=== PATIENT | female | born 1955 | race Caucasian/White ===

== ENCOUNTER → 2016-10-30 | Outpatient (CLI) | payer OTHER ==
[~2016-10-30] MED LIST: ACET-1256 PO; ASPI325T45 PO; CITA40TA4 PO; FERR325T18 PO; OXYC-57 PO; PRAV20TA PO; TRAZ50TA35 PO; ZOLP5TAB6 PO
[2016-10-30 12:55] LABS: ALT/SGPT 27 U/L (12-78); BLOOD UREA NITROGEN 12 mg/dl (7-18); BUN/CREATININE RATIO 16.2 (10-20); CARBON DIOXIDE 32 mmol/L (21-32); CHLORIDE 107 mmol/L (98-107); CREATININE 0.76 mg/dl (0.60-1.20); GLUCOSE 89 mg/dl (70-99); POTASSIUM 4.3 mmol/L (3.5-5.1); SODIUM 143 mmol/L (136-145)
[2016-10-30 12:58] LABS: CHOLESTEROL 192 mg/dl (0-200); CHOLESTEROL/HDL RATIO 2.7; HDL CHOLESTEROL 71 mg/dl; LDL CHOLESTEROL CALCULATED 107 mg/dl; TRIGLYCERIDES 71 mg/dl (0-150); VERY LOW DENSITY LIPOPROT CALC 14 mg/dl
== END | disposition home or self-care (01) ==
LOC: C.LAB1850 10:08
PROVIDERS: ATTEND Family Medicine
DX: E78.00 Pure hypercholesterolemia, unspecified (principal); R73.9 Hyperglycemia, unspecified

== ENCOUNTER 2017-09-22 16:15 | Emergency (ER) | payer OTHER ==
[~2017-09-22] VITALS: Ht 177.8 cm; Wt 80.0 kg
[2017-09-22 16:39] VITALS: TEMP 36.8; Ht 177.8 cm; Wt 80.0 kg
[2017-09-22] MEDS ORDERED: XYLOCAINE 1%/SOD BICARB 20 ML VIAL INFIL ONE (17:45)
[2017-09-22] MEDS ORDERED: CARB200T2 PO (18:00)
--- NOTE | 2017-09-22 18:18 | EMERGENCY ROOM VISIT NOTE ---
ED Visit Note First contact with patient: 17:35 CHIEF COMPLAINT: Left leg laceration HISTORY OF PRESENT ILLNESS: This 62-year-old female presents to ER with chief complaint of left lower leg laceration. The patient states that she was gardening and a stick from a garcia cut her anterior lower leg. The patient states there was minimal bleeding. She is not on any blood thinners. The patient's tetanus is up-to-date. REVIEW OF SYSTEMS: 6 system review was performed and was negative unless stated otherwise in history of present illness. PMH: The patient is healthy; there is no significant medical or surgical history. SOCIAL HISTORY: Patient living at home. Non-smoker, no alcohol or drug use. PHYSICAL EXAM: Vital Signs: Were reviewed reviewed Nurse's notes. General: 62- year-old white female appears in no acute distress. MENTAL Status: Alert and oriented 3. LEFT LOWER LEG: There is a 5 cm V-shaped laceration on the anterior aspect of the leg. The edges are gaping apart. There is no foreign material in the wound and it looks clean. There is no active bleeding. No deep structures such as tendons or nerves are seen in the base of the wound. EMERGENCY DEPARTMENT COURSE: The patient was evaluated. PROCEDURE: Wound Repair: Complexity: Basic. Verbal consent was obtained after the risks and benefits were explained, including but not limited to bleeding, scarring, infection, pain, and bone/joint /nerve damage. The skin was prepped with betadine and a sterile field set. The wound was anesthetized with 3.0 ml of 1% buffered lidocaine. With direct pressure the bleeding subsided. Copious irrigation was performed using sterile saline. The wound was explored for foreign bodies and none found. Debridement was not performed. The wound edges were approximated using 5-0 Ethilon with 8 simple interrupted sutures. Hemostasis and excellent approximation was achieved. Antibacterial ointment and a sterile dressing applied. Detailed wound care instructions and signs and symptoms of infection reviewed with the patient. No complications and the patient tolerated the procedure well. DIAGNOSIS: 5 cm left lower leg laceration DISCHARGE INSTRUCTIONS & TREATMENT: Keep wound clean and dry. No water on the area for 12-24 hrs then no soaking until sutures removed. Do not allow any crusting or dried blood to accumulate on sutures. If this occurs, use a 1:1 solution of hydrogen peroxide/water on a Q-tip to clean the wound. Use an antibiotic ointment for 3-4 days, then let wound dry. Suture removal in 8-10 days. Follow up sooner for any signs of infection (increasing redness, swelling , drainage). Ice and elevate for swelling and pain. Tylenol 650 mg every 6 hrs for pain. Current/Historical Medications Scheduled Citalopram (Citalopram Hydrobromide), 1 TAB PO QPM Pravastatin (Pravachol ), 1 TAB PO QPM Scheduled PRN Carbamazepine (Epitol), 100 MG PO UD PRN for FLARE UPS Trazodone Hcl (Trazodone), 50 MG PO HS PRN for RN Zolpidem Tartrate (Zolpidem Tartrate), 1 TAB PO HS PRN for RN Allergies Coded Allergies: No Known Allergies (Unverified , 09/22/17) Vital Signs Date Time Temp Pulse Resp B/P (MAP) Pulse Ox O2 Delivery O2 Flow Rate FiO2 09/22/17 16:39 36.8 81 16 142/75 96 Departure Information Referrals Anna Tate MD (PCP) Patient Instructions My [facility]
[2017-09-22 18:22] VITALS: BP 115/61; PULSE 71; O2SAT 95
== END 2017-09-22 18:24 | disposition home or self-care (01) ==
LOC: C.EDB 16:16 → C.EDD 18:24
DX: S81.812A Laceration without foreign body, left lower leg, initial encounter (principal); W26.8XXA Contact with other sharp object(s), not elsewhere classified, initial encounter

== ENCOUNTER 2017-09-30 17:19 | Emergency (ER) | payer OTHER ==
[~2017-09-30] VITALS: Ht 179.1 cm; Wt 77.1 kg
[~2017-09-30 17:19] MED LIST changes: -ACET-1256 PO; -ASPI325T45 PO; +CARB200T2 PO; -FERR325T18 PO; -OXYC-57 PO
[2017-09-30 17:23] VITALS: PULSE 67; TEMP 37; O2SAT 96; Ht 179.1 cm; Wt 77.1 kg
--- NOTE | 2017-09-30 20:32 | EMERGENCY ROOM VISIT NOTE ---
ED Visit Note First contact with patient: 17:25 CHIEF COMPLAINT: Suture removal This patient returns to the ED today for removal of sutures that were placed 8 days ago. There has been no swelling, redness, or drainage from the wound. The patient feels like the laceration is healing well. REVIEW OF SYSTEMS: Head: No headache, injury or neck pain. Skin: No rash, new lesions, or masses. General: No fever or chills, fatigue, loss of appetite , or significant recent weight gain or loss. PMH: Reviewed and unchanged from prior visit. SOCIAL HISTORY: Patient lives at home. PHYSICAL EXAM: Vital Signs: Reviewed Nurse's notes. There is a sutured wound on the anterior left mcnamara with no signs of infection. There is no erythema, swelling, or tenderness. EMERGENCY DEPARTMENT COURSE: The sutures were removed without any difficulty and there was no separation of the wound edges. Wound edges were reinforced with benzoin and Steri-Strips. Current/Historical Medications Scheduled Citalopram (Citalopram Hydrobromide), 40 MG PO QPM Pravastatin (Pravachol ), 20 MG PO QPM Scheduled PRN Carbamazepine (Epitol), 100 MG PO UD PRN for FLARE UPS Trazodone Hcl (Trazodone), 50 MG PO HS PRN for Insomnia Zolpidem Tartrate (Zolpidem Tartrate), 5 MG PO HS PRN for Insomnia Allergies Coded Allergies: No Known Allergies (Unverified , 09/30/17) Vital Signs Date Time Temp Pulse Resp B/P (MAP) Pulse Ox O2 Delivery O2 Flow Rate FiO2 09/30/17 17:23 37.0 67 18 96 Room Air Departure Information Impression Primary Impression: Encounter for removal of sutures Dispostion Home / Self-Care Condition GOOD Referrals Anna Tate MD (PCP) Forms HOME CARE DOCUMENTATION FORM, IMPORTANT VISIT INFORMATION Patient Instructions [facility]
== END 2017-09-30 18:00 | disposition home or self-care (01) ==
LOC: C.EDB 17:19 → C.EDD 18:00
DX: Z48.02 Encounter for removal of sutures (principal); S81.812D Laceration without foreign body, left lower leg, subsequent encounter; X58.XXXD Exposure to other specified factors, subsequent encounter

== ENCOUNTER 2022-11-22 00:31 | Observation (INO) ==
[2022-11-22] MEDS ORDERED: dilTIAZem HCl 5 MG/ML 5 ML VIAL IV STA (00:52)
--- NOTE | 2022-11-22 00:55 | Emergency Department Note ---
History of Present Illness General Chief complaint: Tachycardia Stated complaint: A-FIB,DON'T FEEL RIGHT,NAUSEA,SHAKY Time Seen by Provider: 11/22/22 00:44 History of Present Illness 67-year-old female presents emergency department states that she has been having intermittent palpitations over the past few days. Patient states that she drinks 4 cups of coffee daily and she is also been doing a lot of gardening. 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 Patient states that she had 1 episode similar to this 40 years ago while she was in college and it was attributed to potentially mitral valve prolapse. Patient denies any significant alcohol ingestion. Patient denies chest pain shortness of breath nausea vomiting. There are no other mitigating or alleviating factors Home Medications Medication Instructions Recorded Confirmed Type albuterol sulfate 90 mcg/actuation 1 puff inhalation .Q4-6HR PRN 09/05/22 11/22/22 History aerosol inhaler Shortness Of Breath Or Wheezing buspirone 5 mg tablet 5 mg PO DAILY 09/05/22 11/22/22 History citalopram 10 mg tablet 10 mg PO DAILY 09/05/22 11/22/22 History pravastatin 40 mg tablet 20 mg PO DAILY 09/05/22 11/22/22 History trazodone 50 mg tablet 25 mg PO HS 09/05/22 11/22/22 History carbamazepine 200 mg tablet 100 mg PO BID 11/22/22 11/22/22 History zolpidem 5 mg tablet 5 mg PO HS PRN Sleep 11/22/22 11/22/22 History Allergies Allergy/AdvReac Type Severity Reaction Status Date / Time No Known Allergies Allergy Verified 11/22/22 01:14 Past Med/Surg History Medical History No pertinent past medical history Surgical History History of hip replacement Social History Smoking Status: Never smoker Preferred Language: Yoruba Feels Safe at Home: Yes Immunizations: PMH - Hx very remotely of one episode of afib Review of Systems A total of 10 systems reviewed and were otherwise negative Cardiovascular: + palpitations; no chest pain Physical Exam Vital Signs Vital Signs - 24 hr 11/22/22 00:34 11/22/22 00:45 11/22/22 01:18 Temperature 36.5 C Temperature Source Temporal Artery Scan Pulse Rate 132 H 147 H 99 H Pulse Rate from SpO2 Sensor Pulse Rhythm Regular Respiratory Rate 22 16 Blood Pressure 123/86 Blood Pressure Mean 98 Pulse Oximetry 97 96 Oxygen Delivery Method Room Air Room Air Sepsis Recent Fever Within 48 Hours No Sepsis New/Unexplained Change in Mental Status No Sepsis Action Taken by Nursing No Action Required 11/22/22 00:49 11/22/22 00:49 11/22/22 00:50 Temperature Temperature Source Pulse Rate 134 H 132 H Pulse Rate from SpO2 Sensor Pulse Rhythm Respiratory Rate 15 17 Blood Pressure 147/106 H Blood Pressure Mean 132 Pulse Oximetry Oxygen Delivery Method Sepsis Recent Fever Within 48 Hours Sepsis New/Unexplained Change in Mental Status Sepsis Action Taken by Nursing 11/22/22 01:00 11/22/22 01:08 11/22/22 01:08 Temperature Temperature Source Pulse Rate 123 H 83 Pulse Rate from SpO2 Sensor Pulse Rhythm Respiratory Rate 15 17 Blood Pressure 87/45 L Blood Pressure Mean 59 Pulse Oximetry Oxygen Delivery Method Sepsis Recent Fever Within 48 Hours Sepsis New/Unexplained Change in Mental Status Sepsis Action Taken by Nursing 11/22/22 01:10 11/22/22 01:12 11/22/22 01:12 Temperature Temperature Source Pulse Rate 68 72 Pulse Rate from SpO2 Sensor 72 80 Pulse Rhythm Respiratory Rate 16 15 Blood Pressure 74/42 L Blood Pressure Mean 49 Pulse Oximetry 96 96 Oxygen Delivery Method Room Air Room Air Sepsis Recent Fever Within 48 Hours Sepsis New/Unexplained Change in Mental Status Sepsis Action Taken by Nursing 11/22/22 01:17 11/22/22 01:17 11/22/22 01:20 Temperature Temperature Source Pulse Rate 85 96 H Pulse Rate from SpO2 Sensor 91 H 104 H Pulse Rhythm Respiratory Rate 22 18 Blood Pressure 122/86 Blood Pressure Mean 111 Pulse Oximetry 96 96 Oxygen Delivery Method Room Air Room Air Sepsis Recent Fever Within 48 Hours Sepsis New/Unexplained Change in Mental Status Sepsis Action Taken by Nursing 11/22/22 01:15 11/22/22 01:25 11/22/22 01:23 Temperature Temperature Source Pulse Rate 55 L 85 Pulse Rate from SpO2 Sensor Pulse Rhythm Respiratory Rate Blood Pressure 121/85 Blood Pressure Mean 100 Pulse Oximetry Oxygen Delivery Method Sepsis Recent Fever Within 48 Hours Sepsis New/Unexplained Change in Mental Status Sepsis Action Taken by Nursing 11/22/22 01:23 11/22/22 01:30 11/22/22 01:31 Temperature Temperature Source Pulse Rate 86 78 Pulse Rate from SpO2 Sensor 100 H 91 H Pulse Rhythm Respiratory Rate 15 15 Blood Pressure 100/75 Blood Pressure Mean 81 Pulse Oximetry 95 94 Oxygen Delivery Method Room Air Room Air Sepsis Recent Fever Within 48 Hours Sepsis New/Unexplained Change in Mental Status Sepsis Action Taken by Nursing 11/22/22 01:31 Temperature Temperature Source Pulse Rate 85 Pulse Rate from SpO2 Sensor 97 H Pulse Rhythm Respiratory Rate 16 Blood Pressure Blood Pressure Mean Pulse Oximetry 96 Oxygen Delivery Method Room Air Sepsis Recent Fever Within 48 Hours Sepsis New/Unexplained Change in Mental Status Sepsis Action Taken by Nursing GENERAL: Patient is awake alert in no acute distress patient is resting comfortably and showing no signs of anxiety EYES: The conjunctivae are clear. The pupils are round and reactive. EARS, NOSE, MOUTH AND THROAT: The nose is without any evidence of any deformity. Mucous membranes are moist. Tongue is midline. NECK: The neck is nontender and supple. RESPIRATORY: Normal respiratory effort is noted there is no evidence of wheezing rhonchi or rales CARDIOVASCULAR: Irregularly irregular, tachycardic noted there no murmurs rubs or gallops normal S1 normal S2. GASTROINTESTINAL: The abdomen is soft. Abdomen is nontender. BACK: Full range of motion MUSCULOSKELETAL/EXTREMITIES: There is no evidence of gross deformity full range of motion is noted in the hips and shoulders. SKIN: There is no obvious evidence of any rash. There are no petechiae, pallor or cyanosis noted. NEUROLOGIC: Patient is awake alert and oriented x3 strength is symmetric Course Reevaluation(s) Reevaluation #1: Patient was started on IV fluids, given IV Cardizem had an episode of vomiting after her heart rate decreased to less than 60 and she was hypotensive. After 1 dose of Cardizem she had the symptoms but felt improved after she was given IV fluids and Zofran. The case was discussed with the hospitalist for admission. She also complained of a rash after tick bite in the right leg and I added later on the patient Time: 02:24 Consultations Consultation #1: Case was discussed with the [facility] hospitalist for admission Time: 02:24 Administered Medications Sodium Chloride (Nss 1000ml) 1,000 mls @ 999 mls/hr IV .Q1H1M ONE Stop: 11/22/22 03:02 Last Infusion: 11/22/22 02:28 Dose: 0 mls/hr Documented By: Admin: 11/22/22 01:17 Dose: 999 mls/hr Documented By: Discontinued Medications Diltiazem HCl (Diltiazem Hcl 5 Mg/Ml 5 Ml Vial) 20 mg IV NOW STA Stop: 11/22/22 00:53 Last Admin: 11/22/22 01:01 Dose: 20 mg Documented By: Co-signed By: SIXTO Ondansetron HCl (Ondansetron Inj 2 Mg/Ml 2 Ml Vial) 4 mg IV NOW STA Stop: 11/22/22 01:16 Last Admin: 11/22/22 01:19 Dose: 4 mg Documented By: Critical Care Time Critical Care Time: Yes Total Critical Care Time: 35 I have personally spent greater than 35 minutes of critical care time in the direct management of this patient. This includes bedside care, interpretation of diagnostic studies, and testing, discussion with consultants, patient, and family members, and other required patient management activities. These minutes are in excess of all separately billable procedures. Medical Decision Making Medical Records Attestation: I reviewed the patient's medical records. Home Medications Current Medication List: was personally reviewed by me Laboratory Data Attestation: I reviewed the patient's lab results. Patient's lab results were unremarkable as interpreted by me 11/22/22 01:03 11/22/22 01:03 Lab Results 11/22/22 11/22/22 11/22/22 Range/Units 01:03 01:03 01:03 WBC 3.59 L (4.8-10.8) K/ul RBC 4.38 (4.20-5.40) M/uL Hgb 14.1 (12.0-16.0) g/dl Hct 41.2 (37.0-47.0) % MCV 94.1 (80.0-100.0) fL MCH 32.2 (25.0-34.0) pg MCHC 34.2 (32.0-36.0) g/dL RDW Std Deviation 43.1 (36.4-46.3) fL RDW Coeff of Ignacio 12.4 (11.5-14.5) % Plt Count 188 (130-400) K/uL MPV 9.5 (9.4-12.4) fL Immature Gran % (Auto) 0.0 % Neut % (Auto) 49.5 % Lymph % (Auto) 32.9 % [place] % (Auto) 10.9 % Eos % (Auto) 5.3 % Baso % (Auto) 1.4 % Neut # (Auto) 1.78 (1.40-6.50) K/uL Lymph # (Auto) 1.18 L (1.2-3.4) K/uL [place] # (Auto) 0.39 (0.11-0.59) K/uL Eos # (Auto) 0.19 (0-0.50) K/uL Baso # (Auto) 0.05 (0-0.2) K/uL Immature Gran # (Auto) 0.00 L (0.01-0.20) K/uL PT 10.3 (9.0-12.0) Seconds INR 0.9 (0.9-1.1) APTT 23.6 (21.0-31.0) Seconds PTT Ratio 0.8 Sodium 140 (136-145) mmol/L Potassium 3.8 (3.5-5.1) mmol/L Chloride 107 (98-107) mmol/L Carbon Dioxide 27 (21-32) mmol/L Anion Gap 6 (3-11) BUN 14 (6-23) mg/dl Creatinine 0.74 (0.6-1.2) mg/dl Est Cr Clr Drug Dosing 74.3 ml/min Est GFR ( Amer) 98.5 ml/min Est GFR (Non-Af Amer) 85.0 ml/min BUN/Creatinine Ratio 18.9 (10-20) Glucose 130 H (70-99(Fasting)) mg/dl Calcium 9.3 (8.6-10.3) mg/dl Total Bilirubin 0.2 (0.2-1.0) mg/dl AST 21 (13-39) U/L ALT 19 (7-52) U/L Alkaline Phosphatase 67 (34-104) U/L Troponin I High Sens 7.3 (0-14) pg/ml Total Protein 6.4 (6.0-8.3) gm/dl Albumin 4.3 (3.4-5.0) gm/dl Globulin 2.1 L (2.5-4.0) gm/dl Albumin/Globulin Ratio 2.0 (0.9-2) Lyme Disease IgG Ab (Negative) Lyme Disease IgM Ab (Negative) SARS-CoV-2, RNA, NAAT (NEGATIVE) 11/22/22 11/22/22 Range/Units 01:03 01:42 WBC (4.8-10.8) K/ul RBC (4.20-5.40) M/uL Hgb (12.0-16.0) g/dl Hct (37.0-47.0) % MCV (80.0-100.0) fL MCH (25.0-34.0) pg MCHC (32.0-36.0) g/dL RDW Std Deviation (36.4-46.3) fL RDW Coeff of Ignacio (11.5-14.5) % Plt Count (130-400) K/uL MPV (9.4-12.4) fL Immature Gran % (Auto) % Neut % (Auto) % Lymph % (Auto) % [place] % (Auto) % Eos % (Auto) % Baso % (Auto) % Neut # (Auto) (1.40-6.50) K/uL Lymph # (Auto) (1.2-3.4) K/uL [place] # (Auto) (0.11-0.59) K/uL Eos # (Auto) (0-0.50) K/uL Baso # (Auto) (0-0.2) K/uL Immature Gran # (Auto) (0.01-0.20) K/uL PT (9.0-12.0) Seconds INR (0.9-1.1) APTT (21.0-31.0) Seconds PTT Ratio Sodium (136-145) mmol/L Potassium (3.5-5.1) mmol/L Chloride (98-107) mmol/L Carbon Dioxide (21-32) mmol/L Anion Gap (3-11) BUN (6-23) mg/dl Creatinine (0.6-1.2) mg/dl Est Cr Clr Drug Dosing ml/min Est GFR ( Amer) ml/min Est GFR (Non-Af Amer) ml/min BUN/Creatinine Ratio (10-20) Glucose (70-99(Fasting)) mg/dl Calcium (8.6-10.3) mg/dl Total Bilirubin (0.2-1.0) mg/dl AST (13-39) U/L ALT (7-52) U/L Alkaline Phosphatase (34-104) U/L Troponin I High Sens (0-14) pg/ml Total Protein (6.0-8.3) gm/dl Albumin (3.4-5.0) gm/dl Globulin (2.5-4.0) gm/dl Albumin/Globulin Ratio (0.9-2) Lyme Disease IgG Ab Negative (Negative) Lyme Disease IgM Ab Negative (Negative) SARS-CoV-2, RNA, NAAT NEGATIVE (NEGATIVE) Imaging Data Attestation: I personally reviewed and interpreted this imaging study as follows: My Impression: Chest x-ray interpreted by me negative for infiltrate ECG Data Attestation: I personally reviewed and interpreted this ECG as follows: Additional Comments: EKG interpreted by me atrial fibrillation rate of [address]-T change normal axis no obvious ST segment elevation or depression Telemetry was ordered by me, interpreted as atrial fibrillation rate of 152 MDM Narrative Medical decision making differential diagnosis includes cardiac dysrhythmia, electrolyte abnormality, dehydration, acute coronary syndrome Plan is to check labs, EKG, chest x-ray, give IV Cardizem Patient was started on IV fluids, Cardizem, patient will be admitted for new onset rapid atrial fibrillation Impression & Plan Atrial fibrillation Discharge Plan Visit Data Chief Complaint: Tachycardia Stated Complaint: A-FIB,DON'T FEEL RIGHT,NAUSEA,SHAKY ED Provider: Quan Mckeon Discharge Problem: Atrial fibrillation Patient Disposition: Admitted As Inpatient Forms Stand Alone Forms: My [facility] Prescriptions Prescriptions: No Action buspirone 5 mg tablet 5 mg PO DAILY pravastatin 40 mg tablet 20 mg PO DAILY citalopram 10 mg tablet 10 mg PO DAILY albuterol sulfate 90 mcg/actuation HFA aerosol inhaler 1 puff INHALATION .Q4-6HR PRN (Reason: Shortness Of Breath Or Wheezing) trazodone 50 mg tablet 25 mg PO HS zolpidem 5 mg tablet 5 mg PO HS PRN (Reason: Sleep) carbamazepine 200 mg tablet 100 mg PO BID Referrals Referrals: Radha Carrasco [Primary Care Provider] -
[2022-11-22] MEDS ORDERED: ONDANSETRON INJ 2 MG/ML 2 ML VIAL IV STA (01:15)
[2022-11-22 01:27] LABS: Basophils # (auto) 0.05 K/uL (0-0.2); Basophils % (auto) 1.4 %; Eosinophils # (auto) 0.19 K/uL (0-0.50); Eosinophils % (auto) 5.3 %; Hematocrit (blood only) 41.2 % (37.0-47.0); Hemoglobin 14.1 g/dl (12.0-16.0); Lymphocytes # (auto) 1.18 K/uL (1.2-3.4); Lymphocytes % (auto) 32.9 %; Mean Corpuscular Hemoglobin 32.2 pg (25.0-34.0); Mean Corpuscular Hgb Conc 34.2 g/dL (32.0-36.0); Mean Corpuscular Volume 94.1 fL (80.0-100.0); Mean Platelet Volume 9.5 fL (9.4-12.4); Monocytes # (auto) 0.39 K/uL (0.11-0.59); Monocytes % (auto) 10.9 %; Neutrophils # (auto) 1.78 K/uL (1.40-6.50); Neutrophils % (auto) 49.5 %; Platelet Count 188 K/uL (130-400); RDW Coefficient of Variation 12.4 % (11.5-14.5); RDW Standard Deviation 43.1 fL (36.4-46.3); Red Blood Count 4.38 M/uL (4.20-5.40); White Blood Count 3.59 K/ul (4.8-10.8)
[2022-11-22 01:39] LABS: Albumin Level 4.3 gm/dl (3.4-5.0); BUN Creatinine Ratio 18.9 (10-20); Bilirubin,Total 0.2 mg/dl (0.2-1.0); Calcium 9.3 mg/dl (8.6-10.3); Creatinine Clr Calc Pharmacy 74.3 ml/min; Est GFR (African American) 98.5 ml/min; Globulin 2.1 gm/dl (2.5-4.0); Potassium 3.8 mmol/L (3.5-5.1); Total Protein 6.4 gm/dl (6.0-8.3)
[2022-11-22 01:44] LABS: INR 0.9 (0.9-1.1); Partial Thromboplastin Ratio 0.8; Partial Thromboplastin Time 23.6 Seconds (21.0-31.0); Prothrombin Time 10.3 Seconds (9.0-12.0)
[2022-11-22 01:45] LABS: Troponin I High Sensitivity 7.3 pg/ml (0-14)
[2022-11-22] MEDS ORDERED: SODIUM CHLORIDE 0.9% 1000ML 1,000 ML IV ONE (02:02)
[2022-11-22 02:23] LABS: Lyme Ab IgG w/WB Rflx Negative (Negative); Lyme Ab IgM w/WB Rflx Negative (Negative)
--- NOTE | 2022-11-22 04:09 | History & Physical Report ---
Date of Service November 22, 2022 Assessment & Plan (1) Atrial fibrillation: Plan: -Paroxysmal atrial fibrillation with RVR, reportedly 2nd lifetime episode -Likely triggered by dehydration -No significant electrolyte abnormalities on admission, troponin normal -Will check Mg, maintain Mg > 2 and K > 4 -Echocardiogram pending -Pt without apparent history of mitral stenosis or rheumatic fever, no previous valvular disease other than MVP -CHASTEVASC score of 2 -Started heparin for AC, will defer choice of long-term AC to day team after risk/benefit discussion with patient -Currently in atrial fibrillation, rate-controlled -Consider initiation of beta any in AM -Telemetry monitoring (2) Hypotension: Plan: -Likely secondary to diltiazem -Improved with fluid bolus, BP stable at present -Continue fluid repletion at maintenance for now -Monitor (3) Anxiety: Plan: -Continue trazodone, Celexa, buspirone (4) Hyperlipidemia: Plan: -Continue pravastatin (5) Asthma: Plan: -Not in exacerbation -Albuterol PRN Plan FENGI: Heart-healthy Code status: Full DVT ppx: Heparin Isolation: None Dispo: PCU History of Present Illness Chief Complaint: palpitations Primary Care Provider: Radha Carrasco Pt is 67 yo F with PMH anxiety, HLD, asthma, previous episode of paroxysmal AF 40 years prior, mitral valve prolapse presenting with palpitations. Pt states she has been working hard gardening for past several days and drinking 4+ cups of coffee daily. She has not had much water intake. Notes intermittent palpitations/sensation of "skipped beats" over past few days. Earlier this evening while overseeing her grandchildren, pt experienced palpitations and rapid heartbeat for which she used her Fitbit to investigate. Fitbit determined atrial fibrillation with HR 113. She did have similar episode 40 years prior in college which was attributed to potentially mitral valve prolapse. Pt then came to ER, did not have any other symptoms. Pt arrived to ER with HR 130s-140s, BP initially stable. She was given IV diltiazem which did reduce her HR and improved her symptoms but HR decreased below 60 and she had NBNB emesis x1. Her BP dropped to 70s-80s/40s but then recovered with IV fluid bolus. No significant lab abnormalities noted, K 3.2. CXR clear. Lyme studies negative (she did have tick bite on leg recently with rash). At present, pt reports no symptoms. During my evaluation, HR was noted to be 90s-100s on monitor, still in atrial fibrillation. Allergies Allergy/AdvReac Type Severity Reaction Status Date / Time No Known Allergies Allergy Verified 11/22/22 01:14 Home Medications Medication Instructions Recorded Confirmed Type albuterol sulfate 90 mcg/actuation 1 puff inhalation .Q4-6HR PRN 09/05/22 11/22/22 History aerosol inhaler Shortness Of Breath Or Wheezing buspirone 5 mg tablet 5 mg PO DAILY 09/05/22 11/22/22 History citalopram 10 mg tablet 10 mg PO DAILY 09/05/22 11/22/22 History pravastatin 40 mg tablet 20 mg PO DAILY 09/05/22 11/22/22 History trazodone 50 mg tablet 25 mg PO HS 09/05/22 11/22/22 History carbamazepine 200 mg tablet 100 mg PO BID 11/22/22 11/22/22 History zolpidem 5 mg tablet 5 mg PO HS PRN Sleep 11/22/22 11/22/22 History Past Med/Surg History Medical History Anxiety Asthma Hyperlipidemia No pertinent past medical history Paroxysmal atrial fibrillation Surgical History History of hip replacement Social History Smoking Status: Never smoker Hx Alcohol Use: Yes Hx Substance Use: No Preferred Language: Upper Sorbian Communication Ability: Effective 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: No Beliefs That Will Affect Care: None Current Living Situation: Spouse Other Information That Helps Us Care for You: No Feels Safe at Home: Yes Safety Concerns: Feels Safe At This Time Assistive Devices: Glasses Review of Systems Review of Systems: Per HPI/Subjective Physical Exam Physical Exam: General: well-appearing, no acute distress HEENT: PERRL, EOMI, conjunctivae clear without injection, anicteric sclerae, moist mucous membranes, clear oropharynx without exudate or erythema Neck: supple, trachea midline, no thyromegaly, no JVD, no cervical lymphadenopathy CV: Irregularly irregular, normal rate, normal S1 and S2, no murmurs Resp: CTAB, no increased work of breathing, no crackles or wheezes Abd: Soft, nontender, nondistended, no guarding or rebound, no hepatosplenomegaly MSK: Normal bulk of all four extremities Neuro: AOx3, no focal motor or sensory deficits Skin: no rashes or lesions, warm and dry Ext: no LE peripheral edema or erythema, capillary refill <2s in all four extremities, 2+ LE peripheral pulses b/l Results & Data Results & Data Vital Signs (Past 12 Hours) Vital Signs Temp Pulse Resp BP Pulse Ox O2 Del Method 11/22/22 03:30 82 16 95 Room Air 11/22/22 03:30 111/78 11/22/22 03:00 92 H 14 93 Room Air 11/22/22 03:00 106/72 11/22/22 02:45 82 15 94 11/22/22 02:30 82 15 94 Room Air 11/22/22 02:30 87/64 L 11/22/22 02:00 70 13 97 Room Air 11/22/22 02:00 106/66 11/22/22 01:31 85 16 96 Room Air 11/22/22 01:31 100/75 11/22/22 01:30 78 15 94 Room Air 11/22/22 01:23 86 15 95 Room Air 11/22/22 01:23 121/85 11/22/22 01:25 85 11/22/22 01:15 55 L 11/22/22 01:20 96 H 18 96 Room Air 11/22/22 01:17 122/86 11/22/22 01:17 85 22 96 Room Air 11/22/22 01:12 74/42 L 11/22/22 01:12 72 15 96 Room Air 11/22/22 01:10 68 16 96 Room Air 11/22/22 01:08 87/45 L 11/22/22 01:08 83 17 11/22/22 01:00 123 H 15 11/22/22 00:50 132 H 17 11/22/22 00:49 147/106 H 11/22/22 00:49 134 H 15 11/22/22 01:18 99 H 16 96 Room Air 11/22/22 00:45 147 H 11/22/22 00:34 36.5 C 132 H 22 123/86 97 Room Air Supervising Physician Co-Signing Physician Notes Attending addendum: I have physically seen this patient, have supervised the medical residents activities, and agree with the H&P unless as otherwise noted. Assessment and Plan: New onset atrial fibrillation with RVR- The patient will be admitted to telemetry for serial cardiac enzymes, serial EKG's, cardiac rhythm monitoring and a 2-D echocardiogram with Dopplers. Target potassium greater than or equal to 4, magnesium greater than or equal to 2 Continue IV fluid rehydration Rate controlled with diltiazem 20 mg IV x1 from the ED, but mild hypotension Heparin IV per protocol, with long-term anticoagulation determined in the a.m. Additional medications for rate control as needed this evening in light of relative hypotension Anxiety- Continue trazodone, citalopram and buspirone Hyperlipidemia- Continue pravastatin Remaining orders and notations as noted Resident Activity Tracking Resident Involvement: Resident Care Provided Care Provided: Adult Hospital Medicine
[2022-11-22] MEDS ORDERED: LACTATED RINGER'S 1,000 ML IV SCH (05:17)
[2022-11-22] MEDS ORDERED: Heparin IV Adult Wt-Based Standard *NO* Bolus Protocol IV SCH (05:17)
[2022-11-22] MEDS: HEPARIN SODIUM/DEXTROSE 25,000 UNITS/500 ML BAG IV SCH (06:10)
--- NOTE | 2022-11-22 07:12 | XRay Report ---
XR chest 1V portable CLINICAL HISTORY: Chest pain, nonspecific TECHNIQUE: Single frontal radiograph of the chest was obtained. Comparison: Comparison is made to chest radiograph 09/05/2022 FINDINGS: No lines and tubes are seen. The cardiomediastinal silhouette is normal. The lungs are clear. No evid ence of pleural effusion or pneumothorax. IMPRESSION: No acute chest disease. ACT 112: Negative or not required by law. Electronically signed by: iWld Dc M.D. 11/22/2022 7:10 AM
[2022-11-22] MEDS ORDERED: POTASSIUM CHLORIDE CRTAB 20 MEQ TABCR PO STA (08:32)
[2022-11-22] MEDS: PRAVASTATIN SOD 20 MG TAB PO SCH (09:05)
[2022-11-22] MEDS: busPIRone 5 MG TAB PO SCH (09:05)
[2022-11-22] MEDS: carBAMazepine 200 MG TABLET PO SCH ×2 (09:05→22:05)
[2022-11-22] MEDS: CITALOPRAM 20 MG TAB PO SCH (09:05)
[2022-11-22] MEDS: POTASSIUM CHLORIDE CRTAB 20 MEQ TABCR PO SCH (09:05)
[2022-11-22] MEDS: METOPROLOL TARTRATE 25 MG TAB PO SCH ×2 (09:10→21:57)
--- NOTE | 2022-11-22 13:02 | XCELERA ---
[id number]
[2022-11-22 13:05] LABS: Partial Thromboplastin Ratio 1.4
[2022-11-22 13:19] LABS: Partial Thromboplastin Time 40.7 Seconds (21.0-31.0)
[2022-11-22] MEDS ORDERED: STAT IV Infusion **Titration per Protocol STA (15:16)
--- NOTE | 2022-11-22 15:19 | Hospitalist Progress Note ---
Date of Service November 22, 2022 Assessment & Plan (1) Atrial fibrillation: Plan: -Paroxysmal atrial fibrillation with RVR, reportedly 2nd lifetime episode -Likely triggered by dehydration -No significant electrolyte abnormalities on admission, troponin normal -maintain Mg > 2 and K > 4 -Echocardiogram unremarkable -CHASTEVASC score of 2 -Started heparin for AC -Started metoprolol for rate control Cardiology consulted per patient request. Awaiting recommendation We will keep her n.p.o. postmidnight in anticipation of cardioversion tomorrow -Telemetry monitoring (2) Hypotension: Plan: -Likely secondary to diltiazem -Improved with fluid bolus, BP stable at present -Continue fluid repletion at maintenance for now -Monitor (3) Anxiety: Plan: -Continue trazodone, Celexa, buspirone (4) Hyperlipidemia: Plan: -Continue pravastatin (5) Asthma: Plan: -Not in exacerbation -Albuterol PRN Plan FENGI: Heart-healthy Code status: Full DVT ppx: Heparin Isolation: None Dispo: PCU Admission and Anticipated Discharge Date Admission Date: November 22, 2022 Subjective Patient says that she is still having some mild palpitation. Denies any chest pain. No shortness of breath. Review of Systems Review of Systems: All systems reviewed & are unremarkable except as noted in Subjective Physical Exam Physical Exam: General: Awake, conversant Heart: S1, S2/irregular rhythm, rapid rate, no murmur rubs or gallops Lungs: Clear to auscultation bilaterally. Normal effort Abdomen: Soft/nontender/nondistended. No hepatosplenomegaly Extremities: No clubbing/cyanosis. No edema Behavior: Appropriate, cooperative Results & Data Results & Data Vital Signs (Past 12 Hours) Vital Signs Temp Pulse Pulse Resp BP BP Pulse Ox 11/22/22 13:10 37 C 96 H 18 119/75 98 11/22/22 12:30 36.8 C 85 20 126/77 95 11/22/22 08:20 115 H 20 136/104 H 98 11/22/22 08:00 97 H 11/22/22 05:34 16 135/89 97 11/22/22 04:15 136/109 H 11/22/22 04:15 100 H 14 97 11/22/22 05:00 86 11/22/22 03:30 82 16 95 11/22/22 03:30 111/78 O2 Del Method 11/22/22 13:10 Room Air 11/22/22 12:30 Room Air 11/22/22 08:20 Room Air 11/22/22 08:00 11/22/22 05:34 Room Air 11/22/22 04:15 11/22/22 04:15 Room Air 11/22/22 05:00 11/22/22 03:30 Room Air 11/22/22 03:30 PG Care Time/CCT Total # of Minutes Spent Total Time Spent with Patient: Total time spent is greater than 50% in coordination of care (as documented) at patient's floor/unit and/or counseling patient: Coding Level of Care Code None Diagnoses Atrial fibrillation I48.91 Hypotension I95.9 Anxiety F41.9 Hyperlipidemia E78.5 Asthma J45.909
[2022-11-22] MEDS ORDERED: dilTIAZem HCL 125 MG in DEXTROSE 5% 100 ML IV SCH (15:30)
--- NOTE | 2022-11-22 15:50 | Anesthesiology Consultation ---
Date of Service November 22, 2022 Assessment & Plan Chart Review Chart Review: Acceptable Risk for Surgery and Patient NOT seen in Pre Admission Testing Consults Requested none History Surgery Operation Date: 11/23/22 07:45 Proposed Procedures p Cardioversion Form Coverer w/Anesthesia - See Baron MD Height/Weight Height: 5 ft 11 in Weight: 62.1 kg Allergies Allergy/AdvReac Type Severity Reaction Status Date / Time No Known Allergies Allergy Verified 11/22/22 01:14 Medications Home Medications Medication Instructions Recorded Confirmed Last Taken albuterol sulfate 90 mcg/actuation 1 puff inhalation .Q4-6HR PRN 09/05/22 11/22/22 Unknown aerosol inhaler Shortness Of Breath Or Wheezing buspirone 5 mg tablet 5 mg PO DAILY 09/05/22 11/22/22 11/21/22 citalopram 10 mg tablet 10 mg PO DAILY 09/05/22 11/22/22 11/21/22 pravastatin 40 mg tablet 20 mg PO DAILY 09/05/22 11/22/22 11/21/22 trazodone 50 mg tablet 25 mg PO HS 09/05/22 11/22/22 11/21/22 carbamazepine 200 mg tablet 100 mg PO BID 11/22/22 11/22/22 11/21/22 zolpidem 5 mg tablet 5 mg PO HS PRN Sleep 11/22/22 11/22/22 Unknown Active Medications Generic Name Dose Route Start Last Admin Trade Name Freq PRN Reason Stop Dose Admin Buspirone HCl 5 mg 11/22/22 09:00 11/22/22 09:05 Buspirone 5 Mg Tab PO 12/22/22 08:59 5 mg DAILY DAV Administration Carbamazepine 100 mg 11/22/22 09:00 11/22/22 09:05 Carbamazepine 200 Mg Tablet PO 12/22/22 08:59 100 mg BID DAV Administration Citalopram Hydrobromide 10 mg 11/22/22 09:00 11/22/22 09:05 Citalopram 20 Mg Tab PO 12/22/22 08:59 10 mg DAILY DAV Administration Heparin Sodium/Dextrose 25,000 units in 500 mls @ 22 mls/hr 11/22/22 05:17 11/22/22 14:18 Heparin Sodium/Dextrose IV 12/22/22 05:16 1,100 units/hr .[id number] DAV 22 mls/hr Titration Protocol 1,100 UNITS/HR Lactated Ringer's 1,000 mls @ 80 mls/hr 11/22/22 05:17 11/22/22 06:13 Lr IV 11/22/22 17:46 80 mls/hr .[id number] DAV Administration Metoprolol Tartrate 12.5 mg 11/22/22 09:00 11/22/22 09:10 Metoprolol Tartrate 25 Mg Tab PO 12/22/22 08:59 12.5 mg BID DAV Administration Potassium Chloride 40 meq 11/22/22 09:00 11/22/22 09:05 Potassium Chloride Crtab 20 Meq Tabcr PO 12/22/22 08:59 40 meq QAM DAV Administration Pravastatin Sodium 20 mg 11/22/22 09:00 11/22/22 09:05 Pravastatin Sod 20 Mg Tab PO 12/22/22 08:59 20 mg DAILY DAV Administration Past Medical History Medical History No pertinent past medical history Past Surgical History Surgical History History of hip replacement Social History Smoking Status: Never smoker Hx Alcohol Use: Yes alcohol intake frequency: a few times a week Hx Substance Use: No Physical Exam Vital Signs Last Vital Signs Temp 37 C 11/22/22 13:10 Pulse 96 H 11/22/22 13:10 Resp 18 11/22/22 13:10 BP 119/75 11/22/22 13:10 Pulse Ox 98 11/22/22 13:10 O2 Del Method Room Air 11/22/22 13:10 Testing Laboratory Results 11/22/22 01:03 11/22/22 01:03 PT 10.3 Seconds (9.0-12.0) 11/22/22 01:03 INR 0.9 (0.9-1.1) 11/22/22 01:03 APTT 40.7 Seconds (21.0-31.0) H* 11/22/22 12:09
--- NOTE | 2022-11-22 20:46 | Cardiology Consultation ---
Date of Consultation November 22, 2022 Assessment & Plan (1) Paroxysmal atrial fibrillation: (2) Snores: Plan ASSESSMENT/PLAN: 1. Atrial fibrillation with rapid ventricular response: Second episode of A- fib. History of paroxysmal atrial fibrillation. Symptomatic, even with improve d heart rate. Recommend rhythm control. Discussed multiple treatment strategies of atrial fibrillation. Recommend DC cardioversion but she had lunch today. N.p.o. after midnight for elective cardioversion tomorrow, if she does not spontaneously convert in the meantime. Risk and benefits were discussed with her in detail. If she has significant recurrence or frequent episodes, would then consider antiarrhythmic therapy versus ablation. Chads Vasc score is elevated (2). Recommend anticoagulation therapy, includin at least 4 weeks of uninterrupted anticoagulation therapy after cardioversion, possibly indefinite. Currently tolerating metoprolol despite reported history of asthma. Can increase to 25 mg twice daily if tolerated for improved rate control. Transesophageal echo not necessary as cardioversion will occur within the first 48 hours of atrial fibrillation (based on Fitbit/cardia mobile data and patient's abrupt symptoms). 2. Snoring and paroxysmal nocturnal dyspnea: Concern for possible sleep apnea. If found to have sleep apnea, treatment with CPAP may improve A-fib burden. Recommend outpatient sleep study. 3. Disposition: I will be away from the hospital for the next several days. Presentation discussed with Dr. [place], who will be covering cardiology call tomorrow and will perform DC cardioversion when anesthesiology is available. Anesthesiology consultation placed. Dental Tech notified. Patient care communicated with primary hospitalist, Dr. Alvares. Highly complex medical issues. Thank you for allowing me to participate in the care of your patient. Please call for any other questions or concerns. Sincerely, Jayro Wood M.D. History of Present Illness Reason for Consultation: "rapid afib" Requesting Physician: Jumana Alvares MD Attending Physician: uJmana Alvares MD History of Present Illness Mrs. Burkett is a very pleasant 67-year-old female with a history significant for paroxysmal atrial fibrillation and dyslipidemia. She reports a history of asthma when she has upper respiratory infection, but otherwise does not require asthma treatment. She was hospitalized on 11/22/2022 with A-fib with RVR. She reports having an episode of atrial fibrillation when she was in college. She was admitted and there was discussion about cardioversion before she spontaneously converted. While babysitting her grandchildren, at approximately 2200 on 11/21/2022, she felt palpitations, racing heartbeat, irregularity, upset stomach, diaphoretic, and anxious. She reports that she has chronic palpitations that are very brief in nature and different than what she experienced on presentation. She wears a fit bit and her heart rate is typically 60s to 70s at rest. Her Fitbit demonstrated irregularity and concern for atrial fibrillation. [employer] mobile jaylen also demonstrated atrial fibrillation. These changes all occurred late on 11/21/2022. While hospitalized, she was placed on a diltiazem drip initially and her heart rate slowed below 60 and she vomited. She became hypotensive. She was then treated with IV fluid bolus. These treatments occurred in the emergency department according to records. With slowing of her heart rate, her palpitations persist but have improved. She was then placed on metoprolol tartrate 12.5 mg twice daily and has tolerated it well. She denies chest pain, syncope, near syncope, shortness of breath, edema, melena, hematochezia, hematuria, or other bleeding. She denies any recent medication changes, new supplements, alcohol use. She admits that she snores and occasionally has paroxysmal nocturnal dyspnea. She has not been evaluated for sleep apnea in the past. Review of systems: As above. Review of systems otherwise negative/unremarkable. Family history: No known premature CAD. Social history: She denies smoking or drug abuse. Occasional wine. She lives at home with her (García). She has 2 daughters and 1 son, all of which lives in [place]. She has 5 grandchildren. 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 Her [id number] presented to the bedside. Allergies Allergy/AdvReac Type Severity Reaction Status Date / Time No Known Allergies Allergy Verified 11/22/22 01:14 Home Medications Medication Instructions Recorded Confirmed Type albuterol sulfate 90 mcg/actuation 1 puff inhalation .Q4-6HR PRN 09/05/2211/22 History aerosol inhaler Shortness Of Breath Or Wheezing buspirone 5 mg tablet 5 mg PO DAILY 09/05/22 11/22/22 History citalopram 10 mg tablet 10 mg PO DAILY 09/05/22 11/22/22 History pravastatin 40 mg tablet 20 mg PO DAILY 09/05/22 11/22/22 History trazodone 50 mg tablet 25 mg PO HS 09/05/22 11/22/22 History carbamazepine 200 mg tablet 100 mg PO BID 11/22/22 11/22/22 History zolpidem 5 mg tablet 5 mg PO HS PRN Sleep 11/22/22 11/22/22 History Patient History Medical History Anxiety Asthma Hyperlipidemia No pertinent past medical history Paroxysmal atrial fibrillation Surgical History History of hip replacement Social History Smoking Status: Never smoker Hx Alcohol Use: Yes Hx Substance Use: No Preferred Language: Tunisian Communication Ability: Effective Pharmacy Coordinator Required: No Beliefs That Will Affect Care: None Current Living Situation: Spouse Other Information That Helps Us Care for You: No Feels Safe at Home: Yes Safety Concerns: Feels Safe At This Time Assistive Devices: Glasses Physical Exam Physical Exam: Gen.: No acute distress. Alert and oriented. HEENT: Anicteric sclera. Neck: No JVD. No bruits. Normal carotid upstrokes bilaterally. Cardiac: PMI was nondisplaced. No ventricular heave. Irregularly irregular. Normal S1-S2. No murmurs, rubs, or gallops. Pulmonary: Clear to auscultation bilaterally without wheezes, rales, or rhonchi. Abdomen: Soft, nontender, nondistended, with normoactive bowel sounds. No bruits noted. Extremities: 2+ radial pulses bilaterally. 2+ posterior tibialis pulses bilaterally. No edema or cyanosis. Psychiatric: Affect appears appropriate. Results & Data Vital Signs (Past 12 Hours) Vital Signs Temp Pulse Pulse Resp BP BP Pulse Ox 11/22/22 13:10 37 C 96 H 18 119/75 98 11/22/22 12:30 36.8 C 85 20 126/77 95 11/22/22 08:20 115 H 20 136/104 H 98 11/22/22 08:00 97 H 11/22/22 05:34 16 135/89 97 11/22/22 04:15 136/109 H 11/22/22 04:15 100 H 14 97 11/22/22 05:00 86 11/22/22 03:30 82 16 95 11/22/22 03:30 111/78 O2 Del Method 11/22/22 13:10 Room Air 11/22/22 12:30 Room Air 11/22/22 08:20 Room Air 11/22/22 08:00 11/22/22 05:34 Room Air 11/22/22 04:15 11/22/22 04:15 Room Air 11/22/22 05:00 11/22/22 03:30 Room Air 11/22/22 03:30 Laboratory Results Laboratory Results - last 24 hr 11/22/22 11/22/22 11/22/22 01:03 01:03 01:03 WBC 3.59 L RBC 4.38 Hgb 14.1 Hct 41.2 MCV 94.1 MCH 32.2 MCHC 34.2 RDW Std Deviation 43.1 RDW Coeff of Ignacio 12.4 Plt Count 188 MPV 9.5 Immature Gran % (Auto) 0.0 Neut % (Auto) 49.5 Lymph % (Auto) 32.9 [place] % (Auto) 10.9 Eos % (Auto) 5.3 Baso % (Auto) 1.4 Neut # (Auto) 1.78 Lymph # (Auto) 1.18 L [place] # (Auto) 0.39 Eos # (Auto) 0.19 Baso # (Auto) 0.05 Immature Gran # (Auto) 0.00 L PT 10.3 INR 0.9 APTT 23.6 PTT Ratio 0.8 Sodium 140 Potassium 3.8 Chloride 107 Carbon Dioxide 27 Anion Gap 6 BUN 14 Creatinine 0.74 Est Cr Clr Drug Dosing 74.3 Est GFR ( Amer) 98.5 Est GFR (Non-Af Amer) 85.0 BUN/Creatinine Ratio 18.9 Glucose 130 H Calcium 9.3 Magnesium Total Bilirubin 0.2 AST 21 ALT 19 Alkaline Phosphatase 67 Troponin I High Sens 7.3 Total Protein 6.4 Albumin 4.3 Globulin 2.1 L Albumin/Globulin Ratio 2.0 Lyme Disease IgG Ab Lyme Disease IgM Ab SARS-CoV-2, RNA, NAAT 11/22/22 11/22/22 11/22/22 01:03 01:42 08:54 WBC RBC Hgb Hct MCV MCH MCHC RDW Std Deviation RDW Coeff of Ignacio Plt Count MPV Immature Gran % (Auto) Neut % (Auto) Lymph % (Auto) [place] % (Auto) Eos % (Auto) Baso % (Auto) Neut # (Auto) Lymph # (Auto) [place] # (Auto) Eos # (Auto) Baso # (Auto) Immature Gran # (Auto) PT INR APTT PTT Ratio Sodium Potassium Chloride Carbon Dioxide Anion Gap BUN Creatinine Est Cr Clr Drug Dosing Est GFR ( Amer) Est GFR (Non-Af Amer) BUN/Creatinine Ratio Glucose Calcium Magnesium 2.1 Total Bilirubin AST ALT Alkaline Phosphatase Troponin I High Sens Total Protein Albumin Globulin Albumin/Globulin Ratio Lyme Disease IgG Ab Negative Lyme Disease IgM Ab Negative SARS-CoV-2, RNA, NAAT NEGATIVE 11/22/22 12:09 WBC RBC Hgb Hct MCV MCH MCHC RDW Std Deviation RDW Coeff of Ignacio Plt Count MPV Immature Gran % (Auto) Neut % (Auto) Lymph % (Auto) [place] % (Auto) Eos % (Auto) Baso % (Auto) Neut # (Auto) Lymph # (Auto) [place] # (Auto) Eos # (Auto) Baso # (Auto) Immature Gran # (Auto) PT INR APTT 40.7 H* PTT Ratio 1.4 Sodium Potassium Chloride Carbon Dioxide Anion Gap BUN Creatinine Est Cr Clr Drug Dosing Est GFR ( Amer) Est GFR (Non-Af Amer) BUN/Creatinine Ratio Glucose Calcium Magnesium Total Bilirubin AST ALT Alkaline Phosphatase Troponin I High Sens Total Protein Albumin Globulin Albumin/Globulin Ratio Lyme Disease IgG Ab Lyme Disease IgM Ab SARS-CoV-2, RNA, NAAT Diagnostic Findings On 11/22/2022, chart, labs, history and physical report reviewed. Telemetry personally reviewed: Atrial fibrillation with rapid ventricular response but improved heart rate from presentation. Labs from 11/22/2022 demonstrated normal potassium, normal magnesium, normal renal function, normal transaminase levels, normal high-sensitivity troponin, normal hemoglobin Echo 11/22/2022: Normal LV size, wall motion, systolic function. EF 55 to 60%. No LVH. No significant valvular abnormalities. Normal RVSP. Chest x-ray 11/22/2022: No acute chest per radiology. Chest x-ray image personally reviewed and demonstrated no infiltrate or pleural effusion. ECG personally reviewed 11/22/2022 at 8:21 AM: A-fib RVR 108 bpm. Inferior T wave inversion. Nonspecific ST/T wave abnormality. ECG 11/22/2022 at 0048: A-fib with RVR [address]/T wave abnormality. Medications Administered Current Inpatient Medications Buspirone HCl (Buspirone 5 Mg Tab) 5 mg PO DAILY [facility] Stop: 12/22/22 08:59 Last Admin: 11/22/22 09:05 Dose: 5 mg Carbamazepine (Carbamazepine 200 Mg Tablet) 100 mg PO BID [facility] Stop: 12/22/22 08:59 Last Admin: 11/22/22 09:05 Dose: 100 mg Citalopram Hydrobromide (Citalopram 20 Mg Tab) 10 mg PO DAILY [facility] Stop: 12/22/22 08:59 Last Admin: 11/22/22 09:05 Dose: 10 mg Heparin Sodium/Dextrose (Heparin Sodium/Dextrose) 25,000 units in 500 mls @ 22 mls/hr IV .[id number] [facility]; Protocol Stop: 12/22/22 05:16 Last Titration: 11/22/22 19:29 Dose: 1,100 units/hr, 22 mls/hr Metoprolol Tartrate (Metoprolol Tartrate 25 Mg Tab) 12.5 mg PO BID [facility] Stop: 12/22/22 08:59 Last Admin: 11/22/22 09:10 Dose: 12.5 mg Potassium Chloride (Potassium Chloride Crtab 20 Meq Tabcr) 40 meq PO QAM [facility] Stop: 12/22/22 08:59 Last Admin: 11/22/22 09:05 Dose: 40 meq Pravastatin Sodium (Pravastatin Sod 20 Mg Tab) 20 mg PO DAILY [facility] Stop: 12/22/22 08:59 Last Admin: 11/22/22 09:05 Dose: 20 mg Trazodone HCl (Trazodone Hcl 50 Mg Tab) 25 mg PO HS [facility] Stop: 12/22/22 20:59 PG Care Time/CCT Total # of Minutes Spent Total Time Spent with Patient: Total time spent is greater than 50% in coordination of care (as documented) at patient's floor/unit and/or counseling patient: Coding Level of Care Code 01023 INT INP/OBS CARE 3/75MIN Diagnoses Paroxysmal atrial fibrillation I48.0 Snores R06.83
[2022-11-22] MEDS ORDERED: traZODone HCL 50 MG TAB PO SCH (21:00)
--- NOTE | 2022-11-22 22:26 | Billing Data ---
Date of Service November 22, 2022 Coding Level of Care Code 20669 INT INP/OBS CARE
[2022-11-23] MEDS: HEPARIN SODIUM/DEXTROSE 25,000 UNITS/500 ML BAG IV SCH (03:23)
--- NOTE | 2022-11-23 06:03 | Electrocardiogram Report ---
Test Reason : Blood Pressure : / mmHG Vent. Rate : 133 BPM Atrial Rate : 000 BPM P-R Int : 000 ms QRS Dur : 082 ms QT Int : 308 ms P-R-T Axes : 000 053 -38 degrees QTc Int : 458 ms Atrial fibrillation with rapid ventricular response Nonspecific ST and T wave abnormality Abnormal ECG When compared with ECG of 01-MAY-2016 09:44, Atrial fibrillation has replaced Sinus rhythm Vent. rate has increased BY [address] now depressed in Anterolateral leads Nonspecific T wave abnormality now evident in Inferior leads Nonspecific T wave abnormality now evident in Lateral leads Confirmed by Jonathan Wood ([id number]) on 11/23/2022 6:02:51 AM Referred By: REFERRED SELF Confirmed By:Jonathan Wood
--- NOTE | 2022-11-23 06:20 | Electrocardiogram Report ---
Test Reason : Blood Pressure : / mmHG Vent. Rate : 108 BPM Atrial Rate : 000 BPM P-R Int : 000 ms QRS Dur : 086 ms QT Int : 282 ms P-R-T Axes : 000 092 -22 degrees QTc Int : 377 ms Atrial fibrillation with rapid ventricular response Rightward axis Abnormal ECG When compared with ECG of 22-NOV-2022 00:48, Inverted T waves have replaced nonspecific T wave abnormality in Inferior leads Confirmed by Jonathan Wood ([id number]) on 11/23/2022 6:20:13 AM Referred By: REFERRED SELF Confirmed By:Jonathan Wood
[2022-11-23 06:39] LABS: Hematocrit (blood only) 38.2 % (37.0-47.0); Hemoglobin 12.7 g/dl (12.0-16.0); Mean Corpuscular Hemoglobin 31.3 pg (25.0-34.0); Mean Corpuscular Hgb Conc 33.2 g/dL (32.0-36.0); Mean Corpuscular Volume 94.1 fL (80.0-100.0); Mean Platelet Volume 10.1 fL (9.4-12.4); Platelet Count 164 K/uL (130-400); RDW Coefficient of Variation 12.7 % (11.5-14.5); RDW Standard Deviation 43.8 fL (36.4-46.3); Red Blood Count 4.06 M/uL (4.20-5.40); White Blood Count 3.65 K/ul (4.8-10.8)
[2022-11-23 07:00] LABS: BUN Creatinine Ratio 17.5 (10-20); Calcium 8.9 mg/dl (8.6-10.3); Creatinine Clr Calc Pharmacy 99.5 ml/min; Est GFR (African American) 109.1 ml/min; Est GFR (Non-African American) 94.1 ml/min; Potassium 3.9 mmol/L (3.5-5.1)
[2022-11-23 07:26] LABS: Partial Thromboplastin Ratio 1.9
[2022-11-23 07:30] LABS: Partial Thromboplastin Time 53.5 Seconds (21.0-31.0)
[2022-11-23] MEDS ORDERED: ZOLPIDEM TARTRATE 5 MG TAB PO PRN (08:43)
[2022-11-23] MEDS: busPIRone 5 MG TAB PO SCH ×2 (08:54→09:05)
[2022-11-23] MEDS: carBAMazepine 200 MG TABLET PO SCH ×2 (08:55→08:59)
[2022-11-23] MEDS: CITALOPRAM 20 MG TAB PO SCH ×2 (08:55→09:06)
[2022-11-23] MEDS: METOPROLOL TARTRATE 25 MG TAB PO SCH (08:56)
[2022-11-23] MEDS: PRAVASTATIN SOD 20 MG TAB PO SCH ×2 (08:56→09:06)
[2022-11-23] MEDS: POTASSIUM CHLORIDE CRTAB 20 MEQ TABCR PO SCH (09:04)
[2022-11-23] MEDS ORDERED: APIXABAN 5 MG TABLET PO SCH (09:30)
--- NOTE | 2022-11-23 12:45 | Discharge Summary ---
Date of Service November 23, 2022 Admission HPI Per Admitting Provider Pt is 67 yo F with PMH anxiety, HLD, asthma, previous episode of paroxysmal AF 40 years prior, mitral valve prolapse presenting with palpitations. Pt states she has been working hard gardening for past several days and drinking 4+ cups of coffee daily. She has not had much water intake. Notes intermittent palpitations/sensation of "skipped beats" over past few days. Earlier this evening while overseeing her grandchildren, pt experienced palpitations and rapid heartbeat for which she used her Fitbit to investigate. Fitbit determined atrial fibrillation with HR 113. She did have similar episode 40 years prior in college which was attributed to potentially mitral valve prolapse. Pt then came to ER, did not have any other symptoms. Pt arrived to ER with HR 130s-140s, BP initially stable. She was given IV diltiazem which did reduce her HR and improved her symptoms but HR decreased below 60 and she had NBNB emesis x1. Her BP dropped to 70s-80s/40s but then recovered with IV fluid bolus. No significant lab abnormalities noted, K 3.2. CXR clear. Lyme studies negative (she did have tick bite on leg recently with rash). At present, pt reports no symptoms. During my evaluation, HR was noted to be 90s-100s on monitor, still in atrial fibrillation. Admission Exam Per Admitting Provider General: well-appearing, no acute distress HEENT: PERRL, EOMI, conjunctivae clear without injection, anicteric sclerae, moist mucous membranes, clear oropharynx without exudate or erythema Neck: supple, trachea midline, no thyromegaly, no JVD, no cervical lymphadenopathy CV: Irregularly irregular, normal rate, normal S1 and S2, no murmurs Resp: CTAB, no increased work of breathing, no crackles or wheezes Abd: Soft, nontender, nondistended, no guarding or rebound, no hepatosplenomegaly MSK: Normal bulk of all four extremities Neuro: AOx3, no focal motor or sensory deficits Skin: no rashes or lesions, warm and dry Ext: no LE peripheral edema or erythema, capillary refill <2s in all four extremities, 2+ LE peripheral pulses b/l Principal Diagnosis Rapid atrial fibrillation, spontaneously converted to sinus rhythm Discharge Exam General: Awake, conversant Heart: S1, S2/RRR, no murmur rubs or gallops Lungs: Clear to auscultation bilaterally. Normal effort Abdomen: Soft/nontender/nondistended. No hepatosplenomegaly Extremities: No clubbing/cyanosis. No edema Behavior: Appropriate, cooperative Discharge Data Allergies Allergy/AdvReac Type Severity Reaction Status Date / Time No Known Allergies Allergy Verified 11/22/22 01:14 Consultations 11/22/22 01:53 ED Decision to Admit Stat 11/22/22 08:30 Consult Cardiology Routine 11/22/22 15:29 Consult Anesthesiology Routine Procedures Performed Operation Date: 11/23/22 07:45 <No data on this case meets the specified criteria> Hospital Course (1) Atrial fibrillation: -Paroxysmal atrial fibrillation with RVR, reportedly 2nd lifetime episode -Likely triggered by dehydration -No significant electrolyte abnormalities on admission, troponin normal -maintain Mg > 2 and K > 4 -Echocardiogram unremarkable -CHASTEVASC score of 2 Being discharged on Xarelto -Started metoprolol for rate control Patient spontaneously converted to sinus rhythm overnight. Cardiology cleared the patient for discharge She will follow-up with cardiology outpatient in 2 weeks and at that point we will talk about long-term anticoagulation. For now she is being discharged on oral Xarelto and metoprolol (2) Hypotension: -Likely secondary to diltiazem -Improved with fluid bolus, BP stable at present (3) Anxiety: -Continue trazodone, Celexa, buspirone (4) Hyperlipidemia: -Continue pravastatin (5) Asthma: -Not in exacerbation -Albuterol PRN Plan Discharge today Total Time Total Time Spent Total Time Spent (In Minutes): 35 Discharge Plan Discharge Items Patient Disposition: Home - Self-Care Reason For Visit: ATRIAL FIBRILLATION W RVR Discharge Diagnosis: Rapid atrial fibrillation Activity: Resume your previous activity Non-emergency contact: Primary Care Provider Call non-emergency contact if: you have any medication questions Follow-up/Referrals: Jonathan Wood MD [Physician] - 12/10/22 9:00 am (Will see Deana Zarate PA-C in the cardiology office) Radha Carrasco [Primary Care Provider] - 11/29/22 9:45 am (Will Dr Lopes at the [facility] office on [address]) Diet: Heart Healthy Addtl Attending Provider Instructions: Advised to follow-up with PCP in 1 week Advised to follow-up with cardiology in 1 week Advised to note that you have been started on metoprolol for rate control and Xarelto for anticoagulation (stroke prevention) since you have atrial fibrillation Pending Studies at Discharge: No Stand-Alone Forms: [facility] Medications and DC Order Prescriptions: New metoprolol tartrate 25 mg Tablet 12.5 mg PO BID Qty: 30 0RF Xarelto 20 mg tablet 20 mg PO DAILY Qty: 30 0RF Rx Instructions: must administer with evening meal Continued buspirone 5 mg tablet 5 mg PO DAILY pravastatin 40 mg tablet 20 mg PO DAILY citalopram 10 mg tablet 10 mg PO DAILY albuterol sulfate 90 mcg/actuation HFA aerosol inhaler 1 puff INHALATION .Q4-6HR PRN (Reason: Shortness Of Breath Or Wheezing) trazodone 50 mg tablet 25 mg PO HS zolpidem 5 mg tablet 5 mg PO HS PRN (Reason: Sleep) carbamazepine 200 mg tablet 100 mg PO BID Discharge Orders: Discharge Order (Routine); Ordered 11/23/22 Ordered By: Jumana Alvares Admission Data Admit Date/Time: 11/22/22 04:30 Attending Provider: Jumana Alvares Admit Provider: Zoya Tsang Primary Care Provider: Radha Carrasco Other Providers: Nico Currie ; Bryan Bell ; Narendra Jones ; Lorne Colorado ; Min Sears ; Ari Almaguer ; Kurt Segura Jr ; Jonathan Wood ; Mayela Peterson Allison M. ; See Baron ; Geraldo West ; Pedrito Todd ; Poly Ledesma ; Judith Guillen ; Sonny Canela ; Parker James ; Min Sinclair V. ; Suzie Soriano ; Yessy Navarro ; Francy Kirkland ; Malorie Santos ; Vicenta Ledbetter ; Blayne Baldwin ; Jorge Zaragoza ; Adam Spencer ; Sergio Burrell ; Dennise Burrell ; Jovanni Decker ; Poly Smith ; Chirag Samayoa ; David Austin ; Tyrone Farnsworth ; Jeremy Najera ; Mariza Rincon ; Tomy Smith ; Federica Gudino ; Yesenia Smith ; Julio Cesar Kay ; Radha Echols ; Riccardo Dominique ; Renay Beltrán ; Sandra Germain ; Quan Hagan ; Bre Gomez ; Sharon Jo ; Eva Vasquez ; Rohini Joiner ; Franko Joiner V ; Chau Her ; Yessy Mitchell ; Daniel Henry ; Danielle Johnson ; Franko Montalvo ; Ishan Rincon ; Wild Fuentes ; Tiffani Booker ; Amanda Hunter ; Franko Nassar ; Amadou Thompson ; Adelaida Lunsford ; Min Dial ; Jose Najera ; Vero Anthony ; Bethany Avendaño ; Rich Swartz ; Geraldo Delvalle ; Blayne Rviera Jr ; Summer Conway ; Isabel Bell A. ; Teresa Zaragoza ; Quan Lemus ; Malorie Taveras ; Sergio Mathews ; Harshal Mckinnon I. ; Cordelia Bertrand S. ; Isabel Banegas A. ; Jennifer Mcdaniels S. ; Hal Morillo ; David Saleh ; Jostin Aguirre ; Neville Marquez V. ; Beck David ; Niya Schmidt ; Tyler Gonzales ; Tomy Amato Other Interventions: Discharge Summary Assessment (RN) Last Done: 11/23/22 12:49 Coding Level of Care Code 70333 INP/OBS DISCH >30 MIN Diagnoses Atrial fibrillation I48.91 Hypotension I95.9 Anxiety F41.9 Hyperlipidemia E78.5 Asthma J45.909
--- NOTE | 2022-11-23 13:17 | Cardiology Progress Note ---
Date of Service November 23, 2022 Assessment & Plan (1) Paroxysmal atrial fibrillation: Plan: -spontaneously converted to sinus rhythm last evening. -continue Eliquis at 5 mg b.i.d. -continue metoprolol tartrate at 12.5 mg b.i.d. -stable for hospital discharge. -follow-up with Dr. Wood. Admission and Anticipated Discharge Date Admission Date: November 22, 2022 Subjective The patient is resting comfortably in bed without complaints. She knew exactly when she converted to sinus rhythm at 8:00 p.m. yesterday. Physical Exam Physical Exam: In general is well-developed well-nourished white female no acute distress. HEENT exam is negative. Neck is supple with full carotid upstrokes. No carotid bruits. Jugular venous pressure is flat at 90. There is no thyromegaly. Cardiovascular exam reveals a regular rhythm with normal S1 and S2. No S3, S4, or murmurs are noted. Lungs are clear without rales, rhonchi or wheezes. Abdomen is soft nontender without bruits. Extremities reveal intact radial artery pulses bilaterally. There is no peripheral edema. Results & Data Vital Signs (Past 12 Hours) Vital Signs Temp Pulse Resp BP Pulse Ox O2 Del Method 11/23/22 12:49 36.9 C 65 18 123/68 96 11/23/22 12:03 36.9 C 65 18 123/68 96 Room Air 11/23/22 07:50 36.6 C 63 18 119/75 98 Room Air 11/23/22 03:13 36.6 C 53 L 20 98/54 L 97 Room Air Diagnostic Findings Patient converted to normal sinus rhythm at 8:00 p.m. yesterday. PG Care Time/CCT Total # of Minutes Spent Total Time Spent with Patient: Total time spent is greater than 50% in coordination of care (as documented) at patient's floor/unit and/or counseling patient: Coding Level of Care Code 52751 SUB INP/OBS CARE 3/50MIN Diagnoses Paroxysmal atrial fibrillation I48.0
== END 2022-11-23 13:43 | disposition home or self-care (01) ==
LOC: ED 00:31 → EDINP 00:31 → SUATTDRO 04:30 → 2S 12:48

== ENCOUNTER 2025-06-28 17:16 | Observation (INO) ==
[2025-06-28 17:54] LABS: Hematocrit (blood only) 43.1 % (37.0-47.0); Hemoglobin 14.6 g/dL (12.0-16.0); Immature Granulocytes # (auto) 0.02 K/uL (0.01-0.20); Immature Granulocytes % (auto) 0.3 %; Mean Corpuscular Hemoglobin 31.2 pg (25.0-34.0); Mean Corpuscular Volume 92.1 fL (80.0-100.0); Platelet Count 203 K/uL (130-400); RDW Standard Deviation 42.3 fL (36.4-46.3); Red Blood Count 4.68 M/uL (4.20-5.40); White Blood Count 7.17 K/ul (4.8-10.8)
[2025-06-28] MEDS: MAGNESIUM SULFATE / D5W 1 GM/100 ML BAG IV SCH (17:54)
[2025-06-28] MEDS: MAGNESIUM SULFATE 1GM / D5W BAG IV ONE ×2 (17:55)
[2025-06-28] MEDS: METOPROLOL TARTRATE 1 MG/ML VIAL IV STA ×2 (18:07→19:38)
[2025-06-28 18:11] LABS: Alanine Aminotransferase 17.0 U/L (7-52); Albumin Globulin Ratio 1.7 (0.9-2); Albumin Level 4.2 gm/dl (3.4-5.0); Alkaline Phosphatase 87.0 U/L (34-104); Anion Gap 6.0 (3-11); Bilirubin,Total 0.3 mg/dl (0.2-1.0); Blood Urea Nitrogen 27.0 mg/dl (6-23); Calcium 9.7 mg/dl (8.6-10.3); Carbon Dioxide 29.0 mmol/L (21-32); Chloride 105.0 mmol/L (98-107); Creatinine Clr Calc Pharmacy 87.6 ml/min; Globulin 2.5 gm/dl (2.5-4.0); Glucose 138.0 mg/dl (70-99(Fasting)); Potassium 4.2 mmol/L (3.5-5.1); Sodium 140.0 mmol/L (136-145); Total Protein 6.7 gm/dl (6.0-8.3)
[2025-06-28 18:23] LABS: INR 0.9 (0.9-1.1); Partial Thromboplastin Time 23 Seconds (21-31); Prothrombin Time 9.9 Seconds (9.0-12.0)
--- NOTE | 2025-06-28 19:21 | XRay Report ---
Exam: Chest one view. Reason for exam: Chest pain. Previous studies: 10/30/2024. FINDINGS: Cardiac size is normal. Lungs show no acute infiltrate, collapse or edema. Previous nodular opacity right upper lobe is not seen with certainty at this time. IMPRESSION: Stable appearance without acute disease seen at this time. Electronically signed by Quan Diaz 06-28-2025 7:21 PM
--- NOTE | 2025-06-28 21:13 | Emergency Department Note ---
Impression & Plan Atrial fibrillation, Paroxysmal atrial fibrillation ED Provider Note NAME: JOSS SEGAL AGE: 70 SEX: F : 1955 ARRIVES VIA: Walk-In INFORMANT: Patient, ED PROVIDER(S): Fredo Harvey MD CHIEF COMPLAINT: Atrial fibrillation HPI: This is a 70-year-old female presenting for atrial fibrillation. Patient notes that about 3 PM she began having palpitation sensations. She has had A- fib about 2 times in her life, once in college and once about 2 years ago. Last time she is here she required IV medications and cardioversion the next day. She states that she feels palpitations without chest pain. No shortness of breath. She has had increased stress and lack of sleep over the past few days due to the holidays. She reports no nausea or vomiting with this. No fevers or chills. ROS: See above HPI for pertinent positives & negatives. A total of 10 systems reviewed and were otherwise negative. PAST MEDICAL HISTORY: See Below PAST SURGICAL HISTORY: See Below FAMILY HISTORY: See Below SOCIAL HISTORY: See Below HOME MEDICATIONS: See Below ALLERGIES: See Below VITALS: See Below PHYSICAL EXAMINATION: General: resting comfortably in no acute distress Head: Normocephalic and atraumatic Eyes: Normal inspection, extraocular muscles intact Ear, nose, throat: Normal external exam Neck: Normal range of motion Respiratory: lungs clear to auscultation bilaterally Cardiovascular: Regular rate/rhythm, no murmur GI: soft, nontender, no guarding or rebound Extremities: nontender, moves all extremities Neuro: The patient awake and alert, appropriately conversive, no focal deficits, symmetric faces Skin: Warm, dry, and intact MEDICAL DECISION MAKING: This is a 70-year-old female presenting for atrial fibrillation. Upon arrival patient is A-fib with RVR in the 150s. She was evaluated in the room by myself Normotensive otherwise. - She has a Fitbit which does show that her tachycardia/atrial fibrillation began around 3 PM. She states she can feel it very abruptly as well. -Discussed option including electrical cardioversion versus medication. Patient would like to go through medical route currently. -Patient trialed on 2 different doses of IV metoprolol. Her heart rate fluctuates tween 90 and 110 in atrial fibrillation. -[id number] is currently 2 requiring anticoagulation. - Will admit the patient at this time as she request cardioversion with cardiology. -Discussed Dr. Corrales for admission. Differential diagnosis: Atrial fibrillation, ACS, Independent History obtained from: Diagnostics interpreted by me: ECG: ECG independently interpreted by me with atrial fibrillation with RVR at a rate of 152, normal QRS normal QTc, no ST segment elevations consistent with STEMI criteria Cardiac Monitoring: An order was placed for continuous cardiac monitoring. The monitor shows a rate of 110 with atrial fibrillation rhythm. Critical Care Note: I have personally spent 32 minutes of critical care time in the direct management of this patient. This includes bedside care, interpretation of diagnostic studies, and testing, discussion with consultants, patient, and family members, and other required patient management activities. This 32 minutes is in excess of all separately billable procedures. Past Med/Surg History Problem List (Updated 06/29/25 @ 01:11 by Fredo Harvey MD) Arthritis of carpometacarpal (CMC) joint of right thumb Trigger thumb, left thumb Snores Paroxysmal atrial fibrillation (Acute) Hypotension Asthma Hyperlipidemia Anxiety Atrial fibrillation (Acute) Osteophyte of left foot Effusion, right knee Right knee DJD Left leg swelling (Acute) Encounter for removal of sutures (Acute) Bruising (Acute) Medical History Slow to wake up after anesthesia Nausea and vomiting after administration of anesthetic agent Asthma Hyperlipidemia Anxiety Atrial fibrillation Surgical History History of cervical cerclage History of esophagogastroduodenoscopy (EGD) Hx of colonoscopy Hx of tonsillectomy History of hip replacement Social History Smoking Status: Never smoker Second Hand Exposure: Yes (hx as child); Do You Dip or Chew Tobacco: No; Hx Alcohol Use: Yes Alcohol type: wine Hx Substance Use: No Preferred Language: Setswana 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 Beliefs That Will Affect Care: None Current Living Situation: Spouse Feels Safe at Home: Yes Assistive Devices: Glasses Allergies Allergies Allergy/AdvReac Type Severity Reaction Status Date / Time No Known Allergies Allergy Verified 03/24/25 08:07 Home Meds Home Medications Medication Instructions Recorded Confirmed buspirone 5 mg tablet 5 mg PO HS 09/05/22 06/28/25 citalopram 10 mg tablet 10 mg PO HS 09/05/22 06/28/25 pravastatin 40 mg tablet 20 mg PO HS 09/05/22 06/28/25 trazodone 50 mg tablet 50 mg PO HS 09/05/22 06/28/25 carbamazepine 200 mg tablet 100 mg PO HS 12/13/22 06/28/25 multivitamin 1 tab PO DAILY 10/30/24 06/28/25 turmeric 400 mg capsule 400 mg PO DAILY 10/30/24 06/28/25 zolpidem 5 mg tablet 5 mg PO HS PRN Sleep 10/30/24 06/28/25 Results & Data (ED) Vital Signs Vital Signs - 24 hr 06/28/25 17:18 06/28/25 17:21 06/28/25 17:21 Temperature 36.7 C Temperature Source Temporal Artery Scan Pulse Rate 132 H Pulse Rate [Apical] Pulse Rhythm [Apical] Pulse Strength [Apical] Respiratory Rate 18 Respiratory Effort / Characteristics Non-Labored Spontaneous Respiratory Depth Normal Respiratory Pattern Blood Pressure 135/69 Blood Pressure [Right Arm] Blood Pressure Mean 91 Blood Pressure Mean [Right Arm] Blood Pressure Position [Right Arm] Pulse Oximetry 95 Oxygen Delivery Method Room Air Room Air Room Air Sepsis Recent Fever Within 48 Hours No Sepsis New/Unexplained Change in Mental Status No Sepsis Action Taken by Nursing No Action Required 06/28/25 18:01 06/28/25 18:07 06/28/25 18:18 Temperature Temperature Source Pulse Rate 140 H 113 H Pulse Rate [Apical] 89 Pulse Rhythm [Apical] Pulse Strength [Apical] Respiratory Rate 18 Respiratory Effort / Characteristics Respiratory Depth Respiratory Pattern Blood Pressure 121/99 Blood Pressure [Right Arm] 106/75 Blood Pressure Mean Blood Pressure Mean [Right Arm] 85 Blood Pressure Position [Right Arm] Pulse Oximetry 95 Oxygen Delivery Method Sepsis Recent Fever Within 48 Hours Sepsis New/Unexplained Change in Mental Status Sepsis Action Taken by Nursing 06/28/25 18:22 06/28/25 19:38 06/28/25 19:48 Temperature Temperature Source Pulse Rate 89 93 H Pulse Rate [Apical] 93 H Pulse Rhythm [Apical] Regular Pulse Strength [Apical] Normal Respiratory Rate 18 Respiratory Effort / Characteristics Non-Labored Respiratory Depth Normal Respiratory Pattern Regular Blood Pressure 118/75 Blood Pressure [Right Arm] 126/84 Blood Pressure Mean Blood Pressure Mean [Right Arm] 98 Blood Pressure Position [Right Arm] Lying Pulse Oximetry 94 Oxygen Delivery Method Room Air Sepsis Recent Fever Within 48 Hours Sepsis New/Unexplained Change in Mental Status Sepsis Action Taken by Nursing 06/28/25 21:03 06/28/25 21:17 06/28/25 22:00 Temperature Temperature Source Pulse Rate 96 H 94 H Pulse Rate [Apical] 95 H Pulse Rhythm [Apical] Regular Pulse Strength [Apical] Normal Respiratory Rate 16 Respiratory Effort / Characteristics Non-Labored Respiratory Depth Normal Respiratory Pattern Regular Blood Pressure 109/80 Blood Pressure [Right Arm] 109/80 Blood Pressure Mean Blood Pressure Mean [Right Arm] 89 Blood Pressure Position [Right Arm] Lying Pulse Oximetry 94 Oxygen Delivery Method Room Air Sepsis Recent Fever Within 48 Hours Sepsis New/Unexplained Change in Mental Status Sepsis Action Taken by Nursing Laboratory Data 06/28/25 17:35 06/28/25 17:35 Lab Results 06/28/25 Range/Units 17:35 WBC 7.17 (4.8-10.8) K/ul RBC 4.68 (4.20-5.40) M/uL Hgb 14.6 (12.0-16.0) g/dL Hct 43.1 (37.0-47.0) % MCV 92.1 (80.0-100.0) fL MCH 31.2 (25.0-34.0) pg MCHC 33.9 (32.0-36.0) g/dL RDW Std Deviation 42.3 (36.4-46.3) fL RDW Coeff of Ignacio 12.6 (11.5-14.5) % Plt Count 203 (130-400) K/uL MPV 9.5 (9.4-12.4) fL Immature Gran % (Auto) 0.3 % Neut % (Auto) 72.5 % Lymph % (Auto) 17.7 % [place] % (Auto) 6.6 % Eos % (Auto) 1.8 % Baso % (Auto) 1.1 % Neut # (Auto) 5.20 (1.40-6.50) K/uL Lymph # (Auto) 1.27 (1.20-3.40) K/uL [place] # (Auto) 0.47 (0.11-0.59) K/uL Eos # (Auto) 0.13 (0.00-0.50) K/uL Baso # (Auto) 0.08 (0.00-0.20) K/uL Immature Gran # (Auto) 0.02 (0.01-0.20) K/uL PT 9.9 (9.0-12.0) Seconds INR 0.9 (0.9-1.1) APTT 23 (21-31) Seconds PTT Ratio 0.8 Sodium 140 (136-145) mmol/L Potassium 4.2 (3.5-5.1) mmol/L Chloride 105 (98-107) mmol/L Carbon Dioxide 29 (21-32) mmol/L Anion Gap 6 (3-11) BUN 27 H (6-23) mg/dl Creatinine 0.66 (0.6-1.2) mg/dl Est Cr Clr Drug Dosing 87.6 ml/min eGFR 95.49 BUN/Creatinine Ratio 40.9 H (10-20) Glucose 138 H (70-99(Fasting)) mg/dl Calcium 9.7 (8.6-10.3) mg/dl Magnesium 2.3 (1.7-2.4) mg/dl Total Bilirubin 0.3 (0.2-1.0) mg/dl AST 20 (13-39) U/L ALT 17 (7-52) U/L Alkaline Phosphatase 87 (34-104) U/L Troponin I High Sens 6.6 (0-14) pg/ml Total Protein 6.7 (6.0-8.3) gm/dl Albumin 4.2 (3.4-5.0) gm/dl Globulin 2.5 (2.5-4.0) gm/dl Albumin/Globulin Ratio 1.7 (0.9-2) Administered Medications Discontinued Medications Apixaban (Apixaban 5 Mg Tablet) 5 mg PO ONE ONE Stop: 06/28/25 21:14 Last Admin: 06/28/25 21:24 Dose: 5 mg Documented By: vgr Magnesium Sulfate/Dextrose (Magnesium Sulfate / D5w) 1 gm in 100 mls @ 200 mls/hr IV Q30M DAV Stop: 06/28/25 18:50 Last Infusion: 06/28/25 18:54 Dose: Infused Documented By: Admin: 06/28/25 18:24 Dose: 200 mls/hr Documented By: Infusion: 06/28/25 18:24 Dose: Infused Documented By: Admin: 06/28/25 17:54 Dose: 200 mls/hr Documented By: ODALIS Magnesium Sulfate/Dextrose (Magnesium Sulfate 1gm / D5w Bag) Confirm Administered Dose 1 gm IV .STK-MED ONE Stop: 06/28/25 17:48 Last Admin: 06/28/25 17:55 Dose: Not Given Documented By: ODALIS Magnesium Sulfate/Dextrose (Magnesium Sulfate 1gm / D5w Bag) Confirm Administered Dose 1 gm IV .STK-MED ONE Stop: 06/28/25 17:50 Last Admin: 06/28/25 17:55 Dose: Not Given Documented By: ODALIS Metoprolol Tartrate (Metoprolol Tartrate 1 Mg/Ml Vial) 5 mg IV NOW STA Stop: 06/28/25 17:52 Last Admin: 06/28/25 18:07 Dose: 5 mg Documented By: ANGELO Metoprolol Tartrate (Metoprolol Tartrate 1 Mg/Ml Vial) 5 mg IV NOW STA Stop: 06/28/25 18:11 Last Admin: 06/28/25 19:38 Dose: 5 mg Documented By: LG Potassium Chloride (Potassium Chloride Crtab 20 Meq Tabcr) 40 meq PO NOW STA Stop: 06/28/25 22:30 Last Admin: 06/28/25 23:14 Dose: Not Given Documented By: r Imaging Data Radiologist's Impression: Chest X-Ray 06/28/25 17:21 Exam: Chest one view. Reason for exam: Chest pain. Previous studies: 10/30/2024. FINDINGS: Cardiac size is normal. Lungs show no acute infiltrate, collapse or edema. Previous nodular opacity right upper lobe is not seen with certainty at this time. IMPRESSION: Stable appearance without acute disease seen at this time. Electronically signed by Quan Diaz 06-28-2025 7:21 PM Discharge Plan Visit Data Chief Complaint: Cardiac Assessment Stated Complaint: AFIB SINCE 3 PM ED Provider: Fredo Harvey Discharge Problem: Atrial fibrillation, Paroxysmal atrial fibrillation Patient Disposition: Admitted As Inpatient Condition: Fair Discharge Instructions Interventions: ED Discharge Assessment Last Done: 06/28/25 23:42
[2025-06-28] MEDS: APIXABAN 5 MG TABLET PO ONE (21:24)
[2025-06-28 21:48] LABS: Magnesium 2.3 mg/dl (1.7-2.4)
--- NOTE | 2025-06-28 22:43 | History & Physical Report ---
Date of Service June 28, 2025 Assessment & Plan (1) Atrial fibrillation with RVR: (2) Paroxysmal atrial fibrillation: (3) Asthma: Plan The patient is a 70-year-old female with a past medical history including PAF, asthma, hyperlipidemia, anxiety, arthritis, and insomnia. She presents to the emergency department with acute onset of palpitations at 3 PM this afternoon, that she recognized as recurrence of her atrial fibrillation. Her last episode was about 2 years ago, at which time she was given IV medications and cardioversion the next day. She denies any associated chest pain or shortness of breath. Her principal potential stressor is having to cook and take care of several family members who are visiting over the holidays. Workup in the emergency department included EKG which showed atrial fibrillation with RVR at a rate 152 bpm. Troponin 6.6, potassium 4.2, magnesium 2.3, and glucose 138. From the ED the patient received the following: Magnesium sulfate 2 g IV, Lopressor 5 mg IV x 2, and apixaban 5 mg p.o. x 1. [facility]. #Atrial fibrillation with RVR/history of PAF- The patient will be admitted to telemetry for serial cardiac enzymes, serial EKG's, cardiac rhythm monitoring and a 2-D echocardiogram with Dopplers. Initial troponin 6.6 Chest x-ray no acute findings Heart rate decreased to 94 after emergency department treatment of apixaban 5 mg p.o., Lopressor 5 mg IV x 2 and magnesium sulfate 2 g IV. Most recent occurrence was 2 years ago, with patient was placed on IV medications and then had cardioversion the next day. Continue apixaban started in the ED Consult cardiology #Anxiety/insomnia- Continue buspirone, carbamazepine, citalopram, trazodone, and zolpidem. #Hyperlipidemia- Continue pravastatin #Arthritis- Hold turmeric as it is nonformulary Acetaminophen 650 mg by mouth every 6 hours as needed for mild pain or fever History of Present Illness Primary Care Provider: Allison Lopes MD The patient is a 70-year-old female with a past medical history including PAF, asthma, hyperlipidemia, anxiety, arthritis, and insomnia. She presents to the emergency department with acute onset of palpitations at 3 PM this afternoon, that she recognized as recurrence of her atrial fibrillation. Her last episode was about 2 years ago, at which time she was given IV medications and cardioversion the next day. She denies any associated chest pain or shortness of breath. Her principal potential stressor is having to cook and take care of several family members who are visiting over the holidays. Workup in the emergency department included EKG which showed atrial fibrillation with RVR at a rate 152 bpm. Troponin 6.6, potassium 4.2, magnesium 2.3, and glucose 138. From the ED the patient received the following: Magnesium sulfate 2 g IV, Lopressor 5 mg IV x 2, and apixaban 5 mg p.o. x 1. She was then [facility]. Allergies Allergy/AdvReac Type Severity Reaction Status Date / Time No Known Allergies Allergy Verified 03/24/25 08:07 Home Medications Medication Instructions Recorded Confirmed Type buspirone 5 mg tablet 5 mg PO HS 09/05/22 06/28/25 History citalopram 10 mg tablet 10 mg PO HS 09/05/22 06/28/25 History pravastatin 40 mg tablet 20 mg PO HS 09/05/22 06/28/25 History trazodone 50 mg tablet 50 mg PO HS 09/05/22 06/28/25 History carbamazepine 200 mg tablet 100 mg PO HS 12/13/22 06/28/25 History multivitamin 1 tab PO DAILY 10/30/24 06/28/25 History turmeric 400 mg capsule 400 mg PO DAILY 10/30/24 06/28/25 History zolpidem 5 mg tablet 5 mg PO HS PRN Sleep 10/30/24 06/28/25 History Past Med/Surg History Problem List (Updated 06/29/25 @ 02:17 by Nico Currie MD) Atrial fibrillation with RVR Arthritis of carpometacarpal (CMC) joint of right thumb Trigger thumb, left thumb Snores Paroxysmal atrial fibrillation (Acute) Hypotension Asthma Hyperlipidemia Anxiety Atrial fibrillation (Acute) Osteophyte of left foot Effusion, right knee Right knee DJD Left leg swelling (Acute) Encounter for removal of sutures (Acute) Bruising (Acute) Medical History Slow to wake up after anesthesia Nausea and vomiting after administration of anesthetic agent Asthma Hyperlipidemia Anxiety Atrial fibrillation Surgical History History of cervical cerclage History of esophagogastroduodenoscopy (EGD) Hx of colonoscopy Hx of tonsillectomy History of hip replacement Social History Smoking Status: Never smoker Second Hand Exposure: Yes (hx as child); Do You Dip or Chew Tobacco: No; Hx Alcohol Use: Yes Alcohol type: wine Hx Substance Use: No Preferred Language: Belarusian Communication Ability: Effective 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 Beliefs That Will Affect Care: None Current Living Situation: Spouse Feels Safe at Home: Yes Assistive Devices: Glasses Review of Systems Review of Systems: The patient denies chest pain, shortness of breath, dyspnea on exertion, cough, lower extremity swelling, sore throat, fevers, chills, sweats, weight change, fatigue, nausea, vomiting, diarrhea , constipation, abdominal pain, pelvic pain, blood in urine or stool, dysuria, urinary frequency or urgency, lightheadedness, dizziness, headache, memory loss, loss of consciousness, rash, abnormal bruising or bleeding, imbalance, focal or generalized weakness, numbness or tingling in arms or legs, generalized arthralgias or myalgias, back or neck pain, or night sweats. The review of systems is otherwise negative other than for that already noted a jyotsna, and at least 10 systems have been reviewed. Physical Exam Physical Exam: The patient is awake, alert and oriented 3, well developed and well nourished, normocephalic and atraumatic, lying in bed and in no acute distress. HEENT--PERRL, EOMI, mucous membranes and oropharynx dry. Neck--supple. No JVD. No bruits. Thyroid normal, trachea midline, no adenopathy. Heart--atrial fibrillation with rate low 100s. No murmurs, rubs or gallops. Lungs--clear bilaterally, no respiratory distress, no accessory muscle use. Abdomen--normal bowel sounds and soft. Nontender. Nondistended, no hernias or masses, no organomegaly. Extremities--no cyanosis or clubbing. No edema. There are good distal pulses b/l. Dermatologic--normal skin turgor, normal color, no abnormal lymph nodes, no rash. Neurologic--cranial nerves II through XII grossly intact. Rheumatologic--normal range of motion. Psychiatric--normal affect. Results & Data Results & Data Vital Signs (Past 12 Hours) Vital Signs Temp Pulse Pulse Resp BP BP Pulse Ox 06/28/25 22:00 94 H 06/28/25 21:17 96 H 109/80 06/28/25 21:03 95 H 16 109/80 94 06/28/25 19:48 93 H 18 126/84 94 06/28/25 19:38 93 H 118/75 06/28/25 18:22 89 06/28/25 18:18 89 18 106/75 95 06/28/25 18:07 113 H 121/99 06/28/25 18:01 140 H 06/28/25 17:21 06/28/25 17:21 06/28/25 17:18 36.7 C 132 H 18 135/69 95 O2 Del Method 06/28/25 22:00 06/28/25 21:17 06/28/25 21:03 Room Air 06/28/25 19:48 Room Air 06/28/25 19:38 06/28/25 18:22 06/28/25 18:18 06/28/25 18:07 06/28/25 18:01 06/28/25 17:21 Room Air 06/28/25 17:21 Room Air 06/28/25 17:18 Room Air Laboratory Results Laboratory Results WBC 7.17 K/ul (4.8-10.8) 06/28/25 17:35 RBC 4.68 M/uL (4.20-5.40) 06/28/25 17:35 Hgb 14.6 g/dL (12.0-16.0) 06/28/25 17:35 Hct 43.1 % (37.0-47.0) 06/28/25 17:35 MCV 92.1 fL (80.0-100.0) 06/28/25 17:35 MCH 31.2 pg (25.0-34.0) 06/28/25 17:35 MCHC 33.9 g/dL (32.0-36.0) 06/28/25 17:35 RDW Std Deviation 42.3 fL (36.4-46.3) 06/28/25 17:35 RDW Coeff of Ignacio 12.6 % (11.5-14.5) 06/28/25 17:35 Plt Count 203 K/uL (130-400) 06/28/25 17:35 MPV 9.5 fL (9.4-12.4) 06/28/25 17:35 Immature Gran % (Auto) 0.3 % 06/28/25 17:35 Neut % (Auto) 72.5 % 06/28/25 17:35 Lymph % (Auto) 17.7 % 06/28/25 17:35 [place] % (Auto) 6.6 % 06/28/25 17:35 Eos % (Auto) 1.8 % 06/28/25 17:35 Baso % (Auto) 1.1 % 06/28/25 17:35 Neut # (Auto) 5.20 K/uL (1.40-6.50) 06/28/25 17:35 Lymph # (Auto) 1.27 K/uL (1.20-3.40) 06/28/25 17:35 [place] # (Auto) 0.47 K/uL (0.11-0.59) 06/28/25 17:35 Eos # (Auto) 0.13 K/uL (0.00-0.50) 06/28/25 17:35 Baso # (Auto) 0.08 K/uL (0.00-0.20) 06/28/25 17:35 Immature Gran # (Auto) 0.02 K/uL (0.01-0.20) 06/28/25 17:35 PT 9.9 Seconds (9.0-12.0) 06/28/25 17:35 INR 0.9 (0.9-1.1) 06/28/25 17:35 APTT 23 Seconds (21-31) 06/28/25 17:35 PTT Ratio 0.8 06/28/25 17:35 Sodium 140 mmol/L (136-145) 06/28/25 17:35 Potassium 4.2 mmol/L (3.5-5.1) 06/28/25 17:35 Chloride 105 mmol/L (98-107) 06/28/25 17:35 Carbon Dioxide 29 mmol/L (21-32) 06/28/25 17:35 Anion Gap 6 (3-11) 06/28/25 17:35 BUN 27 mg/dl (6-23) H 06/28/25 17:35 Creatinine 0.66 mg/dl (0.6-1.2) 06/28/25 17:35 Est Cr Clr Drug Dosing 87.6 ml/min 06/28/25 17:35 eGFR 95.49 06/28/25 17:35 BUN/Creatinine Ratio 40.9 (10-20) H 06/28/25 17:35 Glucose 138 mg/dl (70-99(Fasting)) H 06/28/25 17:35 Calcium 9.7 mg/dl (8.6-10.3) 06/28/25 17:35 Magnesium 2.3 mg/dl (1.7-2.4) 06/28/25 17:35 Total Bilirubin 0.3 mg/dl (0.2-1.0) 06/28/25 17:35 AST 20 U/L (13-39) 06/28/25 17:35 ALT 17 U/L (7-52) 06/28/25 17:35 Alkaline Phosphatase 87 U/L (34-104) 06/28/25 17:35 Troponin I High Sens 6.6 pg/ml (0-14) 06/28/25 17:35 Total Protein 6.7 gm/dl (6.0-8.3) 06/28/25 17:35 Albumin 4.2 gm/dl (3.4-5.0) 06/28/25 17:35 Globulin 2.5 gm/dl (2.5-4.0) 06/28/25 17:35 Albumin/Globulin Ratio 1.7 (0.9-2) 06/28/25 17:35 Impressions Chest X-Ray 06/28/25 17:21 Exam: Chest one view. Reason for exam: Chest pain. Previous studies: 10/30/2024. FINDINGS: Cardiac size is normal. Lungs show no acute infiltrate, collapse or edema. Previous nodular opacity right upper lobe is not seen with certainty at this time. IMPRESSION: Stable appearance without acute disease seen at this time. Electronically signed by Quan Diaz 06-28-2025 7:21 PM Code Status & VTE Plan Code Status Full code VTE Prophylaxis Plan VTE Prophylaxis will be ordered: Yes PG Care Time/CCT Total # of Minutes Spent Total Time Spent with Patient: Total time spent is greater than 50% in coordination of care (as documented) at patient's floor/unit and/or counseling patient: Coding Level of Care Code 12564 INT INP/OBS CARE 3/75MIN Diagnoses Atrial fibrillation with RVR I48.91 Paroxysmal atrial fibrillation I48.0 Asthma J45.909
[2025-06-28] MEDS: POTASSIUM CHLORIDE CRTAB 20 MEQ TABCR PO STA (23:14)
[2025-06-28] MEDS ORDERED: ZOLPIDEM TARTRATE 5 MG TAB PO PRN (23:41)
[2025-06-28] MEDS ORDERED: ACETAMINOPHEN 325 MG TAB PO PRN (23:41)
[2025-06-29 05:17] LABS: Hematocrit (blood only) 38.5 % (37.0-47.0); Hemoglobin 13.0 g/dL (12.0-16.0); Immature Granulocytes # (auto) 0.01 K/uL (0.01-0.20); Immature Granulocytes % (auto) 0.2 %; Mean Corpuscular Hemoglobin 31.3 pg (25.0-34.0); Mean Corpuscular Volume 92.5 fL (80.0-100.0); Platelet Count 168 K/uL (130-400); RDW Standard Deviation 42.7 fL (36.4-46.3); Red Blood Count 4.16 M/uL (4.20-5.40); White Blood Count 4.42 K/ul (4.8-10.8)
[2025-06-29 05:34] LABS: Albumin Level 3.5 gm/dl (3.4-5.0); Anion Gap 3.0 (3-11); Blood Urea Nitrogen 19.0 mg/dl (6-23); Calcium 8.9 mg/dl (8.6-10.3); Carbon Dioxide 28.0 mmol/L (21-32); Chloride 108.0 mmol/L (98-107); Creatinine Clr Calc Pharmacy 113.3 ml/min; Glucose 105.0 mg/dl (70-99(Fasting)); Magnesium 2.4 mg/dl (1.7-2.4); Potassium 3.9 mmol/L (3.5-5.1); Sodium 139.0 mmol/L (136-145)
[2025-06-29] MEDS: APIXABAN 5 MG TABLET PO SCH (08:07)
[2025-06-29] MEDS: MULTIVITAMIN TAB PO SCH (08:07)
[2025-06-29] MEDS ORDERED: NON-FORMULARY MEDICATION (Turmeric 400 mg Capsule) PO SCH (09:00)
--- NOTE | 2025-06-29 10:41 | XCELERA ---
[id number] [id number]
[2025-06-29 10:47] LABS: Thyroid Stimulating Hormone 1.027 uIu/ml (0.300-4.500)
[2025-06-29 12:56] VITALS: BP 144/75; RESP 18; TEMP 98.2; O2SAT 97
[2025-06-29 14:24] VITALS: PULSE 66
--- NOTE | 2025-06-29 14:45 | Cardiology Consultation ---
Date of Consultation June 29, 2025 Assessment & Plan (1) Paroxysmal atrial fibrillation: -Fortunately, the patient spontaneously converted to sinus rhythm. -She has not had an episode of atrial fibrillation in over 2.5 years. -Her [id number] score is now "2" for age and gender. -Agree with Eliquis 5 mg twice daily -Consider metoprolol tartrate 25 to 50 mg as needed for atrial fibrillation. -Stable for hospital discharge. -Follow-up with Dr. Wood. (2) Hyperlipidemia: - Continue pravastatin. History of Present Illness Reason for Consultation: Mrs. Burkett is a 70-year-old female admitted yesterday with atrial fibrillation and a rapid ventricular response. This consultation was ordered to assist in her cardiac management. Of note, the patient is followed by Dr. Wood in the outpatient setting. The patient was in usual state of health until 3 PM on the day of presentation. She had the abrupt onset of palpitations and a rapid heart rate. She immediately knew that she was in atrial fibrillation as she has experienced that dysrhythmia previously (last time 2.5 years ago). She presented to the emergency room for further care. She received intravenous metoprolol and intravenous magnesium. She was also started on Eliquis. Her ventricular response was adequately controlled. Fortunately, she spontaneously converted to sinus rhythm earlier today. The patient is vigorous on a daily basis caring for her home and property. 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 She has never experienced exertional chest pain or limiting dyspnea. She further denies syncope, presyncope, PND, orthopnea, lower extremity edema, and claudication. Currently, patient is resting comfortably in bed and without complaints. She is anxious for hospital discharge. Past medical and surgical history 1. Paroxysmal atrial fibrillation 2. Hypercholesterolemia 3. Asthma 4. Anxiety 5. DJD 6. 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 Attending Physician: Humberto Gtz MD, PhD Allergies Allergy/AdvReac Type Severity Reaction Status Date / Time No Known Allergies Allergy Verified 03/24/25 08:07 Home Medications Medication Instructions Recorded Confirmed Type buspirone 5 mg tablet 5 mg PO HS 09/05/22 06/28/25 History citalopram 10 mg tablet 10 mg PO HS 09/05/22 06/28/25 History pravastatin 40 mg tablet 20 mg PO HS 09/05/22 06/28/25 History trazodone 50 mg tablet 50 mg PO HS 09/05/22 06/28/25 History carbamazepine 200 mg tablet 100 mg PO HS 12/13/22 06/28/25 History multivitamin 1 tab PO DAILY 10/30/24 06/28/25 History turmeric 400 mg capsule 400 mg PO DAILY 10/30/24 06/28/25 History zolpidem 5 mg tablet 5 mg PO HS PRN Sleep 10/30/24 06/28/25 History apixaban 5 mg tablet (Eliquis) 5 mg PO BID #60 tabs 06/29/25 Rx Patient History Medical History Slow to wake up after anesthesia Nausea and vomiting after administration of anesthetic agent Asthma Hyperlipidemia Anxiety Atrial fibrillation Surgical History History of cervical cerclage History of esophagogastroduodenoscopy (EGD) Hx of colonoscopy Hx of tonsillectomy History of hip replacement Social History Smoking Status: Never smoker Second Hand Exposure: No; Do You Dip or Chew Tobacco: No; Hx Alcohol Use: Yes Alcohol type: hard liquor Hx Substance Use: No Preferred Language: Palestinian Communication Ability: Effective Subscription Crew Leader Required: No Beliefs That Will Affect Care: None Current Living Situation: Spouse Feels Safe at Home: Yes Assistive Devices: None Physical Exam Physical Exam: In general this is a well-developed well-nourished white female in no acute distress. HEENT exam is negative. Neck reveals normal carotid upstrokes without bruits. Jugular venous pressure is flat at 90. There is no thyromegaly. Cardiovascular exam reveals a regular rhythm with a normal S1 and S2. No S3, S4, or murmurs are noted. Lungs are clear without rales, rhonchi, or wheezes. Abdomen is soft without bruits. Extremities reveal intact radial artery and posterior tibial pulses bilaterally. There is no peripheral edema. Results & Data Vital Signs (Past 12 Hours) Vital Signs Temp Pulse Pulse Resp BP Pulse Ox O2 Del Method 06/29/25 14:23 66 06/29/25 13:46 36.8 C 71 18 144/75 H 97 06/29/25 12:48 36.8 C 71 18 144/75 H 97 Room Air 06/29/25 10:30 79 22 06/29/25 10:24 74 06/29/25 09:30 69 15 06/29/25 09:00 67 18 06/29/25 08:30 72 16 06/29/25 08:00 102 H 20 95 Room Air 06/29/25 06:58 79 06/29/25 06:47 94 H 18 104/69 95 Room Air 06/29/25 04:16 108 H 18 104/69 95 Room Air Laboratory Results CBC, comprehensive metabolic profile, and TSH levels all are unremarkable. Lyme titer negative. Diagnostic Findings Echocardiogram notes normal left ventricular systolic function with ejection fraction of 60 to 65%. There is borderline LVH but no valvular pathology. Compared to study performed in October 2024, no significant change. EKG on presentation noted atrial fibrillation with a rapid ventricular response and evidence of LVH. Chest x-ray is unremarkable. PG Care Time/CCT Total # of Minutes Spent Total Time Spent with Patient: Total time spent is greater than 50% in coordination of care (as documented) at patient's floor/unit and/or counseling patient: Coding Level of Care Code 18648 INT INP/OBS CARE 3/75MIN Diagnoses Paroxysmal atrial fibrillation I48.0 Hyperlipidemia E78.5
--- NOTE | 2025-06-29 15:16 | Electrocardiogram Report ---
Test Reason : Blood Pressure : */* mmHG Vent. Rate : 152 BPM Atrial Rate : * BPM P-R Int : * ms QRS Dur : 82 ms QT Int : 284 ms P-R-T Axes : * 53 78 degrees QTcB Int : 451 ms Atrial fibrillation with rapid ventricular response Moderate voltage criteria for LVH, may be normal variant Nonspecific ST and T wave abnormality Abnormal ECG When compared with ECG of 30-Oct-2024 07:45, Atrial fibrillation has replaced Sinus rhythm Vent. rate has increased by 78 bpm Confirmed by Lorne Colorado ([id number]) on 06/29/2025 3:16:00 PM Referred By: REFERRED SELF Confirmed By: Lorne Colorado
--- NOTE | 2025-06-29 15:26 | Discharge Summary ---
Discharge Summary Date of Service June 29, 2025 Principal Dx & Hospital Course #1 = Principal Diagnosis (1) Atrial fibrillation with RVR: RESOLVED as patient spontaneously converted from paroxysmal AFIB with RVR back to NSR while in [facility] ER bed #2A on 06/28/2025 pm, after having received metoprolol 5mg IVP x 2 doses (06/28/2025, 6:07pm, 7:38pm). Etiology of paroxysmal AFIB with RVR remains unclear, but is most probably due to acute dehydration with admission BUN:creatinine ratio > 20:1 (cf., BUN 27, creatinine 0.66 on 06/28/2025, 5:35pm) as patient concedes to drinking 2 cups of espresso coffee everyday in the morning prior to [place] [facility] [place], [place] on a regular basis. Patient was subsequently advised to hold off drinking 2 cups of espresso coffee everyday in the morning prior to hiking[place] [facility] [place], [place] a regular basis. Patient reports that she will try to comply with this recommendation, but makes no promises. Patient also emphatically states that she will continue to hike[place] [facility] [place], on a regular basis, as "I am a very active person outdoors." In addition, patient has a CHADS2-VASC score = 2 points (e.g., 1 point for age 65-74 years, 1 point for female sex); subsequently, patient received apixaban 5mg PO x 2 doses (06/28/2025, 9:24pm; 06/29/2025, 8:07am) while in [facility]. Patient will continue to receive apixaban 5mg PO bid at home. To this end, patient's [id number], [address] [place] [address], received an electronic prescription on 06/29/2025, prior to hospital discharge back to her home, for: a. apixaban 5mg PO bid, #60 tablets, no refills. Patient also reports that she will follow up with her PCP Dr. Allison Lopes, and her CARDS Dr. Jonathan Wood, both within 5-7 days of hospital discharge to continue optimization of patient's paroxysmal AFIB with RVR. (2) Paroxysmal atrial fibrillation: See bullet #1 above. (3) Asthma: No coughing. No wheezing. No shortness of breath. Patient required no pharmacologic intervention for mild intermittent asthma while in [facility] from observation date 06/28/2025 through discharge date 06/29/2025. Observe. Plan The patient is a 70-year-old female with a past medical history including PAF, asthma, hyperlipidemia, anxiety, arthritis, and insomnia. She presents to the emergency department with acute onset of palpitations at 3 PM this afternoon, that she recognized as recurrence of her atrial fibrillation. Her last episode was about 2 years ago, at which time she was given IV medications and card ioversion the next day. She denies any associated chest pain or shortness of breath. Her principal potential stressor is having to cook and take care of several family members who are visiting over the holidays. Workup in the emergency department included EKG which showed atrial fibrillation with RVR at a rate 152 bpm. Troponin 6.6, potassium 4.2, magnesium 2.3, and glucose 138. From the ED the patient received the following: Magnesium sulfate 2 g IV, Lopressor 5 mg IV x 2, and apixaban 5 mg p.o. x 1. She was then referred for evaluation of admission to the [facility]. #Atrial fibrillation with RVR/history of PAF- The patient will be admitted to telemetry for serial cardiac enzymes, serial EKG's, cardiac rhythm monitoring and a 2-D echocardiogram with Dopplers. Initial troponin 6.6 Chest x-ray no acute findings Heart rate decreased to 94 after emergency department treatment of apixaban 5 mg p.o., Lopressor 5 mg IV x 2 and magnesium sulfate 2 g IV. Most recent occurrence was 2 years ago, with patient was placed on IV medications and then had cardioversion the next day. Continue apixaban started in the ED Consult cardiology #Anxiety/insomnia- Continue buspirone, carbamazepine, citalopram, trazodone, and zolpidem. #Hyperlipidemia- Continue pravastatin #Arthritis- Hold turmeric as it is nonformulary Acetaminophen 650 mg by mouth every 6 hours as needed for mild pain or fever Admission HPI Per Admitting Provider The patient is a 70-year-old female with a past medical history including PAF, asthma, hyperlipidemia, anxiety, arthritis, and insomnia. She presents to the emergency department with acute onset of palpitations at 3 PM this afternoon, that she recognized as recurrence of her atrial fibrillation. Her last episode was about 2 years ago, at which time she was given IV medications and cardioversion the next day. She denies any associated chest pain or shortness of breath. Her principal potential stressor is having to cook and take care of several family members who are visiting over the holidays. Workup in the emergency department included EKG which showed atrial fibrillation with RVR at a rate 152 bpm. Troponin 6.6, potassium 4.2, magnesium 2.3, and glucose 138. From the ED the patient received the following: Magnesium sulfate 2 g IV, Lopre ssor 5 mg IV x 2, and apixaban 5 mg p.o. x 1. She was then referred for evaluation of admission to the [facility]. Discharge Exam Constitutional General: comfortable, coherent, cooperative. Wide awake and alert. Not confused, lethargic, or obtunded. Patient speaks in complete, fluent, and articulate sentences without pause, interruption, cough, or wheeze. HEENT: normocephalic, atraumatic. EOMI. PERRL. No nystagmus, gaze paresis, anisocoria, miosis, mydriasis, hyphema, scleral injection, conjunctivitis, or pterygium. No otorrhea. No rhinorrhea. No pharyngeal erythema, edema, or discharge. Neck: supple, no stridor, bruit, goiter, JVD. Jugular venous pressure is estimated to be 3 cm above the sternal angle of Octaviano, which in turn, is 5 cm above the level of the right atrium; hence, jugular venous pressure is estimated to be 8 cm H2O, which is normal. Lymph: no anterior/posterior cervical, supraclavicular, infraclavicular, axillary, epitrochlear, or inguinal lymphadenopathy. Chest: symmetric rise and falls with respirations. Non-tender to palp ation. Lungs: clear to auscultation and percussion; no audible expiratory wheeze, egophony, pectoriloquy, increase in tactile fremitus, or flatness/dullness to percussion at the bases. Heart: RRR, S1 and S2 noted. No S3 or S4 summation gallop. No tripartite friction rub. Grade II/ early systolic murmur @ LLSB without radiation to the carotids, axilla, or back, and which remains invariant in regards to the respiratory cycle. Abdomen: soft, non-tender, non-distended. No rebound, guarding, Noonan's sign, or organomegaly. Bowel sounds auscultated in all 4 quadrants. Extremity: no clubbing, cyanosis, or edema. 2+ pedal pulses bilaterally. Skin: no decubitus ulcer, exanthem, or enanthem. Neuro: alert and oriented in regards to person, place, time, and situation. DTR+. 5/5 motor strength in all 4 extremities, both proximally and distally. Psychiatric: no flat affect. Smiles appropriately. Discharge Plan Discharge Items Patient Disposition: Home - Self-Care Reason For Visit: ATRIAL FIB WITH RVR, HYPOKALEMIA Discharge Diagnosis: 1. Paroxysmal AFIB with RVR. 2. Acute dehydration with admission BUN:creatinine ratio > 20:1 (cf., BUN 27, creatinine 0.66 on 06/28/2025, 5:35pm) after drinking 2 cups of espresso coffee everyday in the morning prior to hiking/[place] the [place] around [place], [place] on a regular basis. 3. NO acute hypokalemia as patient's admitting K level was normal at 4.2 mmol/L (06/28/2025, 5:35pm) and on discharge at 3.9 mmol/L (06/29/2025, 4:45am). 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 See your PCP Dr. Allison Lopes within 5-7 days of hospital discharge for routine follow up visit. 2. See your CARDS Dr. Jonathan Wood within 5-7 days of hospital discharge to discuss whether to continue eliquis 5mg PO bid indefinitely to prophylax against thrombo-embolism in the setting of paroxysmal AFIB with RVR, most likely precipitated by acute dehydration due to (a) drinking 2 cups of espresso coffee every morning, and/or (b) hiking and hiking/trekking in the mountains and [place] around [place], [place] on a regular basis. Pending Studies at Discharge: No Stand-Alone Forms: My [facility] [employer], Smoking Cessation Medications and DC Order Prescriptions: New Eliquis 5 mg Tablet 5 mg PO BID Qty: 60 0RF Continued buspirone 5 mg tablet 5 mg PO HS pravastatin 40 mg tablet 20 mg PO HS citalopram 10 mg tablet 10 mg PO HS trazodone 50 mg tablet 50 mg PO HS carbamazepine 200 mg tablet 100 mg PO HS multivitamin Tablet 1 tab PO DAILY zolpidem 5 mg tablet 5 mg PO HS PRN (Reason: Sleep) turmeric 400 mg Capsule 400 mg PO DAILY Discharge Orders: Discharge Order (Routine); Ordered 06/29/25 Ordered By: Humberto Gtz Admission Data Admit Date/Time: 06/28/25 22:42 Attending Provider: Humberto Gtz Admit Provider: Nico Currie Primary Care Provider: Allison Lopes Other Providers: Nico Currie; Ari Almaguer; Jonathan Wood Other Interventions: Discharge Summary Assessment (RN) Last Done: 06/29/25 13:46 Hospital Stay Data Consultations 06/28/25 21:44 ED Decision to Admit Stat 06/28/25 23:41 Consult Cardiology Routine 06/29/25 11:31 Consult Cardiology Stat Pending Results Patient Have Any Pending Studies at Discharge: No Discharge Instructions Given to Patient (Per Discharging Provider) 1. See your PCP Dr. Allison Lopes within 5-7 days of hospital discharge for routine follow up visit. 2. See your CARDS Dr. Jonathan Wood within 5-7 days of hospital discharge to discuss whether to continue eliquis 5mg PO bid indefinitely to prophylax against thrombo-embolism in the setting of paroxysmal AFIB with RVR, most likely precipitated by acute dehydration due to (a) drinking 2 cups of espresso coffee every morning, and/or (b) hiking and hiking/trekking in the mountains and [place] around [place], [place] on a regular basis. Total Time Total Time Spent Total Time Spent (In Minutes): Discharge time, 35 minutes. Of this time period, 19 minutes were spent in coordinating patient's discharge. Coding Level of Care Code 98659 INP/OBS DISCH >30 MIN Diagnoses Atrial fibrillation with RVR I48.91 Paroxysmal atrial fibrillation I48.0 Asthma J45.909
[2025-06-29] MEDS ORDERED: busPIRone 5 MG TAB PO SCH (21:00)
[2025-06-29] MEDS ORDERED: CITALOPRAM 20 MG TAB PO SCH (21:00)
[2025-06-29] MEDS ORDERED: PRAVASTATIN SOD 20 MG TAB PO SCH (21:00)
== END 2025-06-29 14:50 | disposition home or self-care (01) ==
LOC: SUATTDRO → ED 17:16 → EDINP 17:16 → SUATTDRO 22:42 → 2S 06-29 11:39